=== PATIENT | female | born 1975 | race Caucasian/White ===

== ENCOUNTER → 2021-03-28 20:21 | Outpatient (CLI) | payer OTHER, SELFPAY | PROVIDERS: PCP Physician Assistant; Visit Provider Otolaryngology | DX: G47.33 Obstructive sleep apnea (adult) (pediatric) (principal) | CPT/HCPCS: 95811 ==

== ENCOUNTER → 2021-04-17 07:00 | Outpatient (CLI) | payer OTHER, SELFPAY | PROVIDERS: PCP Physician Assistant; Visit Provider Nurse Practitioner Acute Care | DX: R69 Illness, unspecified (principal) ==

== ENCOUNTER → 2021-05-15 06:30 | Outpatient (CLI) | payer OTHER, SELFPAY | PROVIDERS: PCP Physician Assistant; Visit Provider Nurse Practitioner Acute Care | DX: G47.33 Obstructive sleep apnea (adult) (pediatric) (principal) | CPT/HCPCS: 98960; G0463 ==

== ENCOUNTER 2022-10-06 12:49 | Emergency (ER) | payer OTHER, SELFPAY ==
[2022-10-06 12:50] VITALS: BP 152/104; PULSE 100; RESP 18; TEMP 36.3; O2SAT 98; BMI 30.3
--- NOTE | 2022-10-06 13:05 | EX.ED.UPPERE ---
HPI History of Present Illness Chief Complaint: Upper Extremity Injury Detail of Chief Complaint: Right arm pain Informant: patient Onset/Context/Timing Onset: Days (2 days) Context: Gradual Onset Narrative Narrative: Patient presents secondary to right arm pain. She states has been mildly achy throughout the last week but really started bothering her on Friday. She was at a birthday alliance party yesterday and was holding her hand at her side so that no one would bump it. She noted her hand to be swollen after this, but swelling did subside overnight. She denies any known injury. She is right-hand dominant. When into the room she is rubbing the right side of her neck and shoulder area and describing the area of pain at this time. She did try Tylenol, Aleve, and Flexeril around 11:30 PM last night without significant improvement. [facility] Medical History HTN (hypertension) Hx of gastroesophageal reflux (GERD) Hypothyroidism Migraines YANA (obstructive sleep apnea) Home Medications omeprazole 40 mg capsule,delayed release 40 mg PO DAILY 04/12/21 [History Last Taken Unknown] rizatriptan 10 mg tablet See Rx Instructions PO .COMPLEX 04/12/21 [History Last Taken Unknown] triamcinolone acetonide 55 mcg nasal spray aerosol (Nasacort) 1 spray intranasal DAILY 04/12/21 [History Last Taken Unknown] levothyroxine 75 mcg capsule 200 mcg PO DAILY 06/20/21 [History Last Taken Unknown] cyclobenzaprine 10 mg tablet 10 mg PO TID PRN Muscle Spasm #20 TABLETS 10/06/22 [Rx Last Taken Unknown] hydrocodone-acetaminophen 5-325mg 5mg-325mg 1 tab PO Q6H PRN PRN Pain 3 days #10 TABLETS 10/06/22 [Rx Last Taken Unknown] lidocaine 5 % topical patch (Lidoderm) 1 patch topical DAILY #15 ea 10/06/22 [Rx Last Taken Unknown] naproxen 500 mg tablet (Naprosyn) 500 mg PO BID PRN pain #20 tabs 10/06/22 [Rx Last Taken Unknown] Allergy/AdvReac Type Severity Reaction Status Date / Time No Known Allergies Allergy Verified 10/06/22 12:51 Family History Father Cancer Lung Mother Dementia Aunt Cancer Uncle Cancer Social History Smoking Status: Never smoker ROS ROS ED Constitutional Constitutional ED: Denies chills or fever(s) Eyes Eyes: Denies discharge from eye(s) ENT ENT ED: Denies discharge from eye(s), rhinorrhea or sore throat Cardiovascular Cardiovascular: Reports chest pain; Denies palpitations Respiratory/Chest Respiratory/Chest: Denies cough or dyspnea Gastrointestinal Gastrointestinal: Denies abdominal pain, nausea or vomiting Musculoskeletal Musculoskeletal: Reports extremity pain; Denies back pain Integumentary Denies Abrasions or rash Neurologic Neurologic: Reports headache(s), paresthesias and weakness Psychiatric Psychiatric: Denies anxiety or depression Endocrine Endocrinology: Denies polydipsia or polyuria Allergic/Immunologic Allergic/Immunologic ED: Denies lip swelling or urticaria EXAM Physical Exam Const Vital Signs: 10/06/22 12:50 Temperature 97.3 F L Temperature Source Temporal Pulse Rate 100 Respiratory Rate 18 Blood Pressure 152/104 H Blood Pressure Mean 120 Pulse Ox 98 Oxygen Delivery Method Room Air Positive well nourished and well developed General Appearance ED: well developed HEENT Reports normocephalic and head/scalp atraumatic Eyes PERRL and EOMs intact bilaterally Neck supple Chest Wall inspection of chest normal Chest Narrative: Mild anterior chest wall tenderness on the right over the pectoral region. No skin changes. Resp normal respiratory effort and clear to auscultation bilaterally Cardio regular rate and regular rhythm GI normal to inspection, nondistended, normoactive bowel sounds Palpation: soft Back/Spine no CVA tenderness Extremity Extremity Narrative: Mild muscular tenderness throughout the right upper extremity. No focal tenderness at the joints. No erythema or significant edema at this time. Strong distal pulses. Slow purposeful range of motion. Neuro oriented x3 and no sensory deficits noted Sensorium / Orientation: alert Psych mental status grossly normal Skin no rashes or lesions noted MDM MDM MDM Narrative Medical decision making narrative: Patient presents with I do not have ultrasound available to scan upper extremity. Lab work was obtained to include D-dimer to evaluate for electrolyte derangement or elevated D-dimer which may indicate blood clot. Chest x-ray was obtained to rule out any mass or abnormal finding in the right upper chest which may lead to right arm pain and swelling. C-spine x-rays obtained to evaluate for cervical changes. Lab Data Attestation: I reviewed the patient's lab results. Labs: Laboratory Results 10/06/22 10/06/22 10/06/22 13:25 13:25 13:25 WBC 11.5 H RBC 4.71 Hgb 14.7 Hct 43.0 MCV 91.3 MCH 31.2 MCHC 34.2 RDW Std Deviation 38.5 RDW Coeff of Rachel 11.4 L Plt Count 274 MPV 8.9 Immature Gran % (Auto) 0.300 Neut % (Auto) 67.5 Lymph % (Auto) 19.5 [place] % (Auto) 12.1 H Eos % (Auto) 0.3 Baso % (Auto) 0.3 Absolute Neuts (auto) 7.7 Absolute Lymphs (auto) 2.24 Nucleated RBC % 0 D-Dimer Quant (PE/DVT) 0.43 Sodium 135 L Potassium 3.9 Chloride 103 Carbon Dioxide 27.0 Anion Gap 5 BUN 14 Creatinine 1.06 H Estim Creat Clear Calc 60.76 Est GFR (MDRD) Af Amer 71 Est GFR (MDRD) Non-Af 59 L BUN/Creatinine Ratio 13.2 Glucose 102 Calcium 9.3 Radiography Chest X-Ray - ED: 2 View, Read by ED Physician, Normal, Heart, Lungs and Mediastinum Treatment and Re-Evaluation Narrative: CBC remarkable only for slightly elevated white count 11.5. No left shift. Chemistry studies unremarkable. D-dimer is normal at 0.43. C-spine x-rays per my interpretation reveal no obvious acute abnormalities. Radiology interpretation is reviewed and agrees. Two-view chest x-ray per my interpretation reveals normal bilateral lungs with no evidence of mass or acute abnormality. Radiology and interpretation again reviewed and agrees. On repeat evaluation patient is somewhat more comfortable. Test results discussed with her. I do not believe she needs to come in for an upper extremity ultrasound as her D-dimer is less than 0.5. I do feel that her pain is musculoskeletal in nature with muscle spasm pinching on nerves and causing a radiculopathy. She will be given Naprosyn, Flexeril, [place], and Lidoderm patches. Return instructions given. Discharge Plan Triage Chief Complaint: Upper Extremity Injury ED Provider: Desire Bridges Dx/Rx/DC Orders Clinical Impression: Cervical radiculopathy, Muscle spasm Instructions: ED Muscle Spasm, ED Radiculopathy, Cervical Prescriptions: New naproxen [Naprosyn] 500 mg tablet 500 mg PO BID PRN (Reason: pain) Qty: 20 0RF cyclobenzaprine 10 mg tablet 10 mg PO TID PRN (Reason: Muscle Spasm) Qty: 20 0RF hydrocodone-acetaminophen 5-325 mg tablet 1 tab PO Q6H PRN PRN (Reason: Pain) 3 Days Qty: 10 0RF lidocaine [Lidoderm] 5 % adhesive patch,medicated 1 patch topical DAILY Qty: 15 0RF Rx Instructions: leave on most painful area for up to 12 hrs No Action omeprazole 40 mg capsule,delayed release(DR/EC) 40 mg PO DAILY triamcinolone acetonide [Nasacort] 55 mcg aerosol,spray 1 spray intranasal DAILY Rx Instructions: administer into each nostril rizatriptan 10 mg tablet See Rx Instructions PO .COMPLEX Rx Instructions: take 1 tab at onset of headache; if no relief may repeat 1 tab after at least 2 hrs; max = 3 tabs/24 hr PO levothyroxine 75 mcg capsule 200 mcg PO DAILY Primary Care Provider: Gaby Waller Referrals: Gaby Waller PA [Primary Care Provider] - 1 Week if not improving Disposition Disposition: Home, Self Care
[2022-10-06] MEDS: Lidocaine 5% Patch 1 PATCH TOPICAL (13:17)
[2022-10-06] MEDS: Morphine 4 MG/ML Syringe IV (13:18)
[2022-10-06] MEDS: Ondansetron 4 MG/2 ML Vial IV (13:18)
[2022-10-06 13:33] LABS: Absolute Lymphocyte Count 2.24 X10^3/uL (0.83-4.51); Absolute Neutrophil Count 7.7 X10^3/uL (2.0-7.7); Basophil# 0.04 X10^3/uL; Basophil% 0.3 % (0-1); Eosinophil# 0.03 X10^3/uL; Eosinophils% 0.3 % (0-5); Hemoglobin 14.7 g/dL (12.0-15.0); Lymphocyte # 2.24 X10^3/ul (0.83-4.51); Lymphocyte % 19.5 % (19-41); Mean Corp Hgb Conc 34.2 g/dL (32-36); Mean Corpuscular Hgb 31.2 pg (27.0-32.0); Mean Corpuscular Volume 91.3 fL (81-99); Mean Platelet Vol. 8.9 fl (6.2-12.0); Monocyte# 1.39 X10^3/uL; Monocyte% 12.1 % (0-10); NRBC Flagged by Analyzer 0 % (0-5); Neutrophil # 7.72 X10^3/uL (2.7-7.7); Neutrophil % 67.5 % (47-70); Platelet Count 274 K/mm3 (150-450); RBC Distribution Width CV 11.4 % (11.6-14.6); RBC Distribution Width SD 38.5 fl (35.1-43.9); Red Blood Count 4.71 M/mm3 (4.2-5.4); White Blood Count 11.5 K/mm3 (4.4-11.0)
--- NOTE | 2022-10-06 13:41 | RAD_ITS ---
EXAM: XR CHEST, 2 VIEWS CLINICAL INDICATION: Chest pain. TECHNIQUE: Frontal and lateral views of the chest. This report was created using [employer] report generation technology. COMPARISON: None. FINDINGS: LUNGS AND PLEURAL SPACES: The lungs are clear. No pneumothorax. No effusion. HEART: Unremarkable. Cardiac silhouette not enlarged. MEDIASTINUM: Central airways and mediastinal contour are unremarkable. BONES/JOINTS: Slight anterior wedging of T12 and L1 superior endplates are presumably from remote injury and/or developmental. SOFT TISSUES: Unremarkable. RAD/Chest PA and Lateral IMPRESSION: No acute cardiopulmonary pathology.. Electronically Signed: Trav Ulloa MD at 14:00 EDT ,
--- NOTE | 2022-10-06 13:41 | RAD_ITS ---
EXAM: XR CERVICAL SPINE, 2 OR 3 VIEWS CLINICAL INDICATION: pain TECHNIQUE: Frontal and lateral views of the cervical spine. This report was created using [employer] report generation technology. COMPARISON: None. FINDINGS: VERTEBRAE: Unremarkable. Preserved vertebral body height. No acute fracture. No spondylolisthesis. Preservation of the normal cervical lordosis. No significant facet arthropathy. DISC SPACES: Unremarkable. Disc spaces are maintained. SOFT TISSUES: Unremarkable. No prevertebral soft tissue widening. LUNG APICES: Clear. RAD/Cerv Spine 2 or 3 Views IMPRESSION: Normal cervical spine radiographs. Electronically Signed: Trav Ulloa MD at 14:31 EDT ,
[2022-10-06 13:47] LABS: Anion Gap 5 (5-15); BUN 14 mg/dL (7-18); BUN/Creat Ratio 13.2 RATIO (10-20); Calcium,Total 9.3 mg/dL (8.5-10.1); Chloride 103 mmol/L (98-107); Creatinine, Serum 1.06 mg/dL (0.55-1.02); EST Glomerular Filtration Rate 59 mL/min (>60); Est Glom Filt Rate - Afr Amer 71 mL/min (>60); Estimated Creatinine Clearance 60.76 ml/min; Glucose 102 mg/dL (74-106); Potassium 3.9 mmol/L (3.5-5.1); Sodium Level 135 mmol/L (136-145)
[2022-10-06 13:52] LABS: D-Dimer Quantitative (DVT/PE) 0.43 FEU/ug/m (0.27-0.49)
[2022-10-06 15:13] VITALS: RESP 16
== END 2022-10-06 15:13 | disposition home or self-care (01) ==
PROVIDERS: Emergency Provider Emergency Medicine; PCP Physician Assistant; Visit Provider Emergency Medicine
DX: M54.12 Radiculopathy, cervical region (principal); M62.838 Other muscle spasm; G47.33 Obstructive sleep apnea (adult) (pediatric)
CPT/HCPCS: 71046; 72040; 80048; 85025; 85379; 96374; 96375; 99282; J7030; A4216; J2405

== ENCOUNTER → 2023-07-02 | Outpatient (CLI) | payer OTHER, SELFPAY ==
--- NOTE | 2023-07-02 17:47 | CT_ITS ---
INDICATION: GROSS HEMATURIA EXAMINATION: CT ABDOMEN AND PELVIS WITHOUT CONTRAST - CT Abdomen And Pelvis W/O Contrast Injection TECHNIQUE: Helically acquired images were obtained of the abdomen and pelvis without oral or IV contrast. A radiation dose optimization technique was used for this scan. IV Contrast dosage and agent: None. Oral contrast: None. RADIATION DOSAGE (If Supplied By Facility): CTDIvol = ( 10.61 ) mGy, DLP = ( 559.53 ) mGycm COMPARISON: No relevant prior comparison study available FINDINGS: LOWER CHEST: Lung bases are clear. No cardiomegaly or pericardial effusion. LIVER: Homogeneous. No focal mass. GALLBLADDER AND BILIARY TREE: Small gallstones in the gallbladder neck. No gallbladder distension or wall edema. No intra- or extrahepatic biliary ductal dilation. PANCREAS: No focal cystic or solid mass. SPLEEN: Normal size without focal cystic or solid mass. ADRENAL GLANDS: No nodules. KIDNEYS AND URETERS: Normal renal size and position. No hydronephrosis. No evidence of ureteral stones. Suboptimal evaluation of the renal contours without contrast. PERITONEUM: No ascites or free air. No other fluid collection. BOWEL: No evidence of acute appendicitis. No stomach or bowel distension. No focal inflammatory change. LYMPH NODES: No enlarged mesenteric or retroperitoneal lymph nodes. VESSELS: Aorta is non-dilated. URINARY BLADDER: Unremarkable. REPRODUCTIVE ORGANS: No pelvic masses. IUD seen in place. ABDOMINAL WALL: Very small umbilical hernia containing fat BONES: No lytic or blastic abnormality. Mild degenerative changes in the lower lumbar spine. CT/Abdomen/Pelvis without Cont IMPRESSION: 1. No evidence of urinary tract stones or hydronephrosis. 2. No focal acute inflammatory process. 3. Small gallstones in the gallbladder neck. Electronically Signed: Rigo Coates MD at 11:23 EST ,
--- OUTSIDE RECORDS SUMMARY | 2023-07-02 17:52 | XMS RPT_ITS | CCD ---
Author Name Unknown Address [id number] [place] [address] Organization [facility] Care Team Providers Care Application Security Developer Name Role Phone GOODMAN CARRILLO, KIM Navarrete Attending Unavailable Ron [phone], Krishna [phone] Co nsulting Unavailable GABY WALLER Primary Care Unavailable GOODMAN CARRILLO, KIM Navarrete Admitting Unavailable KIM OTERO MD Consulting Unavailable GABY WALLER Consulting Unavailable KIM OTERO MD Attending Unavailable GOODMAN CARRILLO, KIM Navarrete Consulting Unavailable GOODMAN CARRILLO, KIM Navarrete Primary Care Unavailable GOODMAN CARRILLO, KIM Navarrete Admitting Unavailable KIM OTERO MD Consulting Unavailable GOODMAN CARRILLO, KIM Navarrete Primary Care Unavailable GOODMAN CARRILLO, KIM Navarrete Admitting Unavailable GOODMAN CARRILLO, KIM Navarrete Attending Unavailable Pushpa CARRILLO, Sharan Garcia Primary Care Provider [phone] Pushpa CARRILLO, Sharan Garcia Primary Care Provider [phone] Pushpa CARRILLO, Sharan Garcia Primary Care Provider [phone] LEROY SALAZAR MD Admitting Unava ilable LEROY SALAZAR MD Primary Care Unava ilable LEROY SALAZAR MD Attending Unava ilable GABY WALLER Consulting Unavailable PROVIDER, UNKNOWN Consulting Unavailable GABY WALLER Attending Unavailable GABY WALLER Admitting Unavailable GABY WALLER Primary Care Unavailable GABY WALLER Consulting Unavailable PROVIDER, UNKNOWN Consulting Unavailable LEROY SALAZAR MD Primary Care Unava ilable LEROY SALAZAR MD Attending Unava ilable GABY WALLER Consulting Unavailable LEROY SALAZAR MD Admitting Unava ilable PROVIDER, UNKNOWN Consulting Unavailable MICHELLE REN Referring Unavailable PUSHPA SHARAN DEBBI Primary Care Unavailable MICHELLE REN Referring Unavailable [facility] Primary Care Unavailable PUSPHA SHARAN DEBBI Primary Care Unavailable PUSHPA SHARAN DEBBI Primary Care Unavailable GWEN, SANDI Referring Unavailable [facility] SHAR[facility] DEBBI Primary Care Unavailable GWEN, SANDI Referring Unavailable APRIL ACOSTA Attending Unavailable GWEN, SANDI Referring Un[facility] Care Unavailable GWEN, SANDI Referring Unavailable PUSHPA SHARAN DEBBI Primary Care Unavailable Sridhar TUCKER, Gaby J Unavailable Sridhar TUCKER, Gaby J Unavailable Endocrinology Provider Unavailable Unavailab lexie Neurology Provider Unavailable Unavailable Nephrology Provider Unavailable Unavailable Chuy BURGESS, Amarilis Unavailable Unavailable Naga CORN HUSKER, Serenity Unavailable Pushpa CARRILLO, Sharan Whaley Unavailable Mian CORN HUSKER, Shanice Gaviria Unavailable Unavailable Zohaib CORN HUSKER, Mitra Unavailable Unavailable Jeancarlos TUCKER, Luke E Unavailable Lucretia Arshad C Unavailable Unavailable Solo TAN, Shreya Unavailable Unavailable Carolina CORN HUSKER, Herminia Unavailable Unavaila ble Garrison CORN HUSKER, Windy Unavailable Unavailable Shane BURGESS, Michelle Menchaca Unavailable Unavailable Mutersbaugh CORN HUSKER, Juju K Unavailable Unavai lable Shahid CORN HUSKER, Bisi M Unavailable Unavailab lexie Theodore MA, Windy Unavailable Unavailable Mainor CARRILLO, Casey Garcia Unavailable Vess CORN HUSKER, Neilee L Unavailable Unavailable Wengerd CORN HUSKER, Desire Unavailable Unavailabl e Unavailable Unavailable Allergies Allergy Classification Reported Allergen(s) Allergy Type Date of Onset Reaction(s) Facility (19 sources) Latex; Translations: [LATEX] Propensity to adverse reactions 09-12-2005 [facility] Medications Current Medications Medication Drug Class(es) Dates Sig (Normalized) Sig (Original) levonorgestrel 0.796630 mg/hr intrauterine system (18 sources) Progestin, Progestin-containi ng Intrauterine Device Start: 03-26-2019 End: 03-24-2024 levonorgestrel (MIRENA) 20 mcg/24 hours (5 yrs) 52 mg IUD Indications: Encounter for insertion of mirena IUD 1 Each by INTRAUTERINE route as directed. 1 Each 0 03/26/2019 03/24/2024 Active Completed/Discontinued Medications Medication Drug Class(es) Dates Sig (Normalized) Sig (Original) cephalexin 500 mg oral capsule (4 sources) Cephalosporin Antibacterial Start: 08-28-2015 End: 09-07-2015 take 1 capsule by mouth three times daily CEPHALEXIN, 500MG (Oral Capsule) ; 1 Capsule three times daily for 10 days Quantity: 30 {Capsule} Refills: 0 Ordered: 01-Jan-2016 MD Sharan Medel Start: 28-Aug-2015 End: 07-Sep-2015 Status: Inactive cyclobenzaprine hydrochloride 10 mg oral tablet (4 sources) Muscle Relaxant Start: 01-16-2022 End: 02-06-2023 cyclobenzaprine 10 mg tablet ; 1 (one) Tablet Three times a day as needed for 0 days Quantity: 30 {Tablet} Refills: 0 Ordered: 06-Feb-2023 CarolinaFRANCHESKAN Herminia Start: 16-Jan-2022 End: 06-Feb-2023 Status: Inactive Comments: Medication taken as needed. may cause drowsiness Problems Active Problems Problem Classification Problem Date Documented Date Episodic/Chronic Allergic reactions (4 sources) Contact dermatitis and other eczema, unspecified cause 01-13-2012 Episodic Contraceptive and procreative management (8 sources) Intrauterine contraceptive device in situ; Translations: [Presence of (intrauterine) contraceptive device] Onset: 04-30-2023 04-30-2023 Episodic Esophageal disorders (12 sources) Gastroesophageal reflux disease; Translations: [Gastro-esophageal reflux disease without esophagitis] 02-06-2023 Chronic Essential hypertension (20 sources) Hypertensive disorder; Translations: [Essential (primary) hypertension] 02-06-2023 Chronic Fever of unknown origin (4 sources) Fever; Translations: [Fever, unspecified] 08-28-2015 Episodic Genitourinary symptoms and ill-defined conditions (6 sources) Blood in urine; Translations: [Hematuria, unspecified] 02-06-2023 Episodic Headache; including migraine (20 sources) Migraine; Translations: [Migraine, unspecified, not intractable, without status migrainosus] 02-06-2023 Chronic Immunizations and screening for infectious disease (1 source) Patient encounter status; Translations: [Encounter for screening for human papillomavirus (HPV)] Episodic Menstrual disorders (1 source) Intermenstrual spotting due to intrauterine device; Translations: [Excessive and frequent menstruation with regular cycle] 04-30-2023 Chronic Nonmalignant breast conditions (1 source) Breast finding ; Translations: [Dense breast tissue] 04-30-2023 Episodic Other and unspecified benign neoplasm (3 sources) Fibroadenoma of left breast; Translations: [Benign neoplasm of left breast] Episodic Other circulatory disease (4 sources) Elevated blood pressure reading without diagnosis of hypertension 07-27-2014 Episodic Other connective tissue disease (1 source) Pain in right arm; Translations: [Pain in right arm] Episodic Other connective tissue disease (6 sources) Biceps tendinitis; Translations: [Bicipital tendinitis, right shoulder] 01-27-2019 Episodic Other liver diseases (12 sources) Increased bilirubin level; Translations: [Unspecified jaundice] 02-06-2023 Episodic Other lower respiratory disease (6 sources) Snoring; Translations: [Snoring] 12-06-2021 Episodic Other non-traumatic joint disorders (6 sources) Shoulder pain; Translations: [Pain in unspecified shoulder] 07-27-2018 Episodic Other nutritional; endocrine; and metabolic disorders (6 sources) Body mass index 30+ - obesity; Translations: [Body mass index (BMI) 30.0-30.9, adult] 07-27-2018 Chronic Other nutritional; endocrine; and metabolic disorders (8 sources) Obesity; Translations: [Obesity, unspecified] 02-06-2023 Chronic Other screening for suspected conditions (not mental disorders or infectious disease) (20 sources) Mammography abnormal; Translations: [Other abnormal and inconclusive findings on diagnostic imaging of breast] Onset: 11-13-2022 Episodic Other skin disorders (6 sources) Eruption; Translations: [Rash and other nonspecific skin eruption] 01-27-2019 Episodic Other upper respiratory infections (6 sources) Upper respiratory infection; Translations: [Acute upper respiratory infection, unspecified] 11-20-2020 Episodic Residual codes; unclassified (20 sources) Obstructive sleep apnea syndrome; Translations: [Obstructive sleep apnea (adult) (pediatric)] Onset: 04-30-2022 04-30-2022 Chronic Spondylosis; intervertebral disc disorders; other back problems (8 sources) Low back pain; Translations: [Radiculopathy, lumbar region] 02-06-2023 Episodic Thyroid disorders (20 sources) Hypothyroidism, unspecified; Translations: [Nontoxic multinodular goiter] Onset: 06-05-2021 Chronic Unclassified (4 sources) Number of Children 02-06-2023 Past or Other Problems Problem Classification Problem Date Documented Da te Episodic/Chronic Unclassified (4 sources) Well adult female - The patient feels well with no complaints, has good energy level and is sleeping well. The first day of the last menstrual period was : (01/16/2023). The patient has a balanced diet and takes no supplemental vitamins & iron. The patient does not exercise. The patient sleeps 8 hours per night. Note for Well adult female : no issues or problems and does got see OBGYN in and has an appt in April and gets her Pap and mammo's there. Pt will need refill on thyroid medication.124-128/80 for home Bps. Headaches have been pretty good - still having and unsure if prn med is helping. Says they are pretty infrequent. 02-06-2023 Unclassified (4 sources) Back pain - The onset of the back pain has been acute and has been occurring for 4 days. The course has been constant. The pain is characterized as stabbing, shooting (shooting down leg) and burning. The pain is located in the lower back. There are no precipitating factors. The symptoms are relieved by ice. The pain has been associated with leg weakness (right leg). Note for Back pain : alive- this morning 7 am 01-16-2022 Unclassified (4 sources) Cold Symptoms - Symptoms include sneezing, nasal congestion, ear fullness, sore throat, dry cough, chills, general malaise and headache, but do not include fever. The onset was gradual 4 day(s) ago. The symptoms occur constantly. The patient describes this as moderate in severity and unchanged. The patient is not currently being treated for this problem. The patient has not been exposed to an individual with similar symptoms. Medical history includes seasonal allergies. 11-20-2020 Unclassified (4 sources) Well adult female - The patient feels well with no complaints, has good energy level and is sleeping well. The first day of the last menstrual period was : (03/13/20). The patient is not using any method of contraception at this time. The patient has a balanced diet and takes no supplemental vitamins & iron. The patient exercises none (occasional). The patient sleeps 6 hours per night. Note for Well adult female : Snoring.Migraines have been bad for a couple of weeks. Was having heartburn but that is better now.Gets flu shot at work. 03-20-2020 Unclassified (4 sources) Shoulder pain - The onset of the shoulder pain has been acute and has been occurring in a persistent pattern for 1 day. The course has been increasing. The pain is characterized as a moderate to severe dull aching and sharp stabbing. The pain is described as being located in the right shoulder and is aggravated by physical activity and any movement. There are no relieving factors. The symptoms have been associated with painful ROM, decreased ROM and difficulty with overhead activities, but have not been associated with fever. There has been no previous diagnostic testing. There have been no previous evaluations. Note for Shoulder pain : started yesterday at work as a pain in her bicep, originates in the right shoulder, with some numbness in her right hand 11-12-2018 Unclassified (4 sources) Follow up for multiple chronic conditions - The patient is here for follow-up of hypertension, hypothyroidism and other condition(s) (migraines (which have been good), thyroid nodule). The patient always takes the prescribed medications. No side effects noted. The patient has an active lifestyle but no regular exercise program. The patient's dietary compliance is fairly good usually adhering to recommendations. The patient states that breathing effort is stable, there is no recent angina or dyspnea, there are no vision changes or weakness (been years), sleep patterns have improved and headaches have been noticed occasionally. Note for Multiple chronic conditions follow-up : She has been bleeding since she stopped control months ago. Small amount of blood on tampon when she puts one in but otherwise is noticing it when she urinates. No urinary infection symptoms. 08-12-2018 Unclassified (4 sources) Shoulder pain - The onset of the shoulder pain has been sudden and has been occurring in a persistent pattern for 4 days. The course has been constant. The pain is characterized as a moderate to severe dull aching (all the time and then can be piercing at times with certain movements). The pain is described as being located in the left shoulder (front and side) and is aggravated by any movement. There has been no previous diagnostic testing. Previous evaluations have been completed by a chiropractor. There has been no previous physical therapy. There has been no previous surgery. There has been no use of assistive devices. Previous medication use has included Ibuprofen (took 800mg this morning). Note for Shoulder pain : No history of injury. She is right handed.Sleeps on left side.Initially woke up with discomfort but then it worsened later in the day.Doing ice/heat application which helps.Little bit of tingling intermittently into the hand. 03-06-2018 Unclassified (4 sources) Well Adult, female - The patient feels well with no complaints, has good energy level and is sleeping well. The first day of the last menstrual period was : (12/08/17). The patient is not using any method of contraception at this time. The patient has a balanced diet and takes no supplemental vitamins & iron. The patient exercises weekly. The patient sleeps 8 hours per night. Note for Well Adult, female : Migraines haven't been as bad.Went off OCP recently. 01-22-2018 Unclassified (4 sources) high bp/headaches - Patient is here due to not feeling well for the past couple of months. Had a physical about a year ago and BP was noted to be elevated at that time - seemed to improve though. On Friday she woke up with a headach and then the next day she had a bloody nose. Checked her BP at [facility] and it was 178/116. Took headache relief extra strength which didn't help. Has a history of migraines (since age of 17) but these have been fairly well controlled on OCP. She had another headache this morning so checked her BP at work and it was 158/116. The headache has since improved quite a bit. No family history of HTN. 01-02-2016 Unclassified (4 sources) Cold Symptoms - Symptoms include sneezing, nasal congestion, runny nose, purulent discharge (occasionally.), ear pain (;eft ear pain.), sore throat, productive cough (yellowish phlegm. SOB when pyong down. PO 97%.), general malaise and headache (and generalized achiness.), but do not include fever (none in office but says at times she has felt feverish but never took temperature.). The onset was gradual 4 day(s) ago. The patient describes this as worsening. Current treatment includes non-prescription cold medication (Mucinex and took some Benadryl last night.) and NSAIDs. Risk factors do not include smoking. Note for Upper respiratory infection : No one else at home sick. reviewed by [facility] 08-28-2015 Unclassified (4 sources) Well Adult, female - The patient feels well with minor complaints (Concerned about an increase in blood pressure), has decreased energy level and is sleeping well. The first day of the last menstrual period was : (07-06-14). The current method of contraception is: oral contraceptives. The patient has a balanced diet and takes no supplemental vitamins & iron. The patient does not exercise. The patient sleeps 6 hours per night. Note for Well Adult, female : BP increase was noted at [employer] office. ROS also showed snoring. Some problems awakening in the morning. Some afternoon sleepiness. 07-27-2014 Unclassified (4 sources) Rash - The onset of the rash has been gradual (Was moving trees in order to cut some firewood.) and has been occurring for 4 days. The course has been increasing. The rash is characterized as red and raised above the skin. The rash was first seen on the upper extremity (both arms). It spread to the face and the lower extremity. There has been associated itching and erythema. Note for Rash : reviewed by [facility] 01-13-2012 Results Test Name Value Interpretation Reference Range Facil ity Vital Signs Date Time Vital Sign Value Performing Clinician Mayi walton 04-30-2023 08:07-0500 Body height 167.6 cm April Acosta APRN.CNM Work Phone: [facility] 04-30-2023 08:07-0500 Body weight 86.64 kg April Acosta APRN.CNM Work Phone: [facility] 04-30-2023 08:07-0500 Diastolic blood pressure 70 mm[Hg] April Acosta APRN.CNM Work Phone: [facility] 04-30-2023 08:07-0500 Systolic blood pressure 118 mm[Hg] April Acosta APRN.CNM Work Phone: [facility] 02-06-2023 14:25-0400 Body height 168.91 cm [facility], [facility]; [facility]. 02-06-2023 14:25-0400 Body mass index (BMI) [Ratio] 30.83 kg/m2 [facility]. 02-06-2023 14:25-040 Body surface area Derived from formula 1.98 m2 [facility], [facility] 02-06-2023 14:25-040 Body temperature 98.9 [degF] [facility], [facility] Encounters Encounter Date Encounter Type Care Provider Facility Start: 06-27-2023 End: 06-27-2023 Orders Gaby Waller PA-C Work Phone: [facility] Start: 06-04-2023 End: 06-04-2023 ambulatory [facility] Facility:[facility] Start: 06-04-2023 End: 06-04-2023 Subsequent hospital visit by physician Diagnostic Mammo [facility] Mamm[facility] Start: 06-04-2023 End: 06-04-2023 ambulatory LEROY CARRILLO [facility] Start: 05-06-2023 Telephone encounter April stevens APRN.CNM Work Phone: OB/Gynecology Procedures Date Procedure Procedure Detail Performing Clinician Start: 06-04-2023 Digital breast tomosynthesis unilateral Sandi Crow APRN.[employer]ACHINE [employer]PERATOR Work Phone: Start: 06-04-2023 Urinalysis LEROY ZUÑIGA Plan of Treatment Date Care Activity Detail Author Start: 04-30-2027 HPV TESTING HPV TESTING [facility] Start: 04-30-2027 PAP TESTING PAP TESTING [facility] Start: 04-30-2027 Screening for malignant neoplasm of cervix [facility] Start: 07-27-2024 Urine microalbumin profile DTaP,Tdap,Td Vaccine (2 - Td or Tdap) [facility] Start: 04-30-2024 Mammography Mammogram Screening [facility] Start: 04-30-2024 Screening for malignant neoplasm of breast Mammogram Screening [facility] Start: 06-27-2023 Us soft tissue head & neck real time imge docm Thyroid Ultrasound (83725) Start: 27-Jun-2023 Intent [employer] Start: 04-30-2023 Mammography [facility] Start: 03-20-2023 Antinuclear antibodies tez TEZ TITER AND PATTERN (16398) Start: 20-Mar-2023 Request [employer]; [employer]. Start: 03-20-2023 Assay of thyroid stimulating hormone tsh TSH (THYROID STIMULATING HORMONE) (80064) Start: 20-Mar-2023 Request [employer]. Start: 03-20-2023 Basic metabolic panel calcium total BMP w/ GFR (F) (07997) Start: 20-Mar-2023 Request [employer]; [employer]. Start: 02-14-2023 Influenza vaccination [facility] Start: 10-15-2022 End: 06-07-2023 Diagnostic mammography computer-aided detcj uni [facility]FUS DIAGNOST[facility] LT Radiology Routine Abnormal ultrasound of breast Expected: 10/15/2022, Expires: 06/07/2023 [facility] Work Phone: Immunizations Immunization Date Immunization Notes Care Provider Neda ring 04-05-2019 influenza virus vaccine, unspecified formulation Us 1 Work Phone: [facility] 07-27-2014 tetanus toxoid, redu edwin diphtheria toxoid, and acellular pertussis vaccine, adsorbed Gaby Waller CAITLIN Work Phone: [employer]. Payers Date Payer Category Payer Unknown 2018 Unknown [id number] 2018 Unknown [employer] PPO [id number] 2018-Present [phone] [address] [place] [address] PPO [id number] 2018 Unknown [id number] 1974 Unknown [id number] 1974 Unknown [id number] 1974 Unknown [id number] 1974 Unknown [id number] 1974 Unknown [id number] 1974 Unknown [id number] Social History Date Type Detail Facility Start: 04-30-2022 Tobacco smoking stat [facility] Never smoked tobacco [facility] Work Phone: Start: 04-23-2021 End: 04-30-2022 Alcohol intake Current non-drinker of alcohol (finding) [facility] Start: 04-20-2020 History SDOH Social Connections Phone 5 [facility] Start: 04-20-2020 History SDOH Social Connections Druze 2 [facility] Start: 04-20-2020 History SDOH Social Connections Membership 1 [facility] Start: 04-20-2020 History SDOH Social Connections Meetings 3 [facility] Start: 04-20-2020 History SDOH Physica l Activity MPS 6 [facility] Start: 04-20-2020 Education 13 [facility] Start: 1975 Sex Assigned At Not on file [facility] Start: 10-07-2021 End: 04-30-2022 Exposure to SARS-CoV-2 (event) Not sure [facility] Start: 04-30-2022 Tobacco use and exposure Smoke less tobacco non-user [facility] Work Phone: Start: 04-20-2020 End: 04-30-2023 History of Social function [employer] [facility] Work Phone: Start: 04-20-2020 End: 04-30-2023 Social connection and isolation panel [facility] Work Phone: Do you belong to any clubs or organizations such as muslim groups, unions, fraternal or athletic groups, or school groups? Yes [facility] Work Phone: Are you now , , , , never or living with a partner? [facility] Work Phone: How hard is it for y ou to pay for the very basics like food, housing, medical care, and heating Not hard at all [facility] Work Phone: Do you feel stress - tense, restless, nervous, or anxious, or unable to sleep at night because your mind is troubled all the time - these days [OSQ] Not at all [facility] Work Phone: (I/We) worried wheth er (my/our) food would run out before (I/we) got money to buy more. Never true [facility] Work Phone: Start: 04-30-2023 Alcohol intake Current drinke r of alcohol (finding) [facility] Start: 04-30-2023 Alcohol Comment socially [facility] Exercise History: Exercise Histo ry: ; Inactive. [facility], [facility].; [facility], [facility]. Tobacco Use: Tobacco Use: ; N ever smoker. [facility].; [facility], [facility]. Female [facility].; [facility], [facility] Work Phone: Clinical Notes 06-14-2021 to 06-04-2023 Ramu Felix Mammo Tech - 06/04/2023 3:30 PM ESTTelephone Encounter - Ashanti Arana RN - 05/06/2023 4:43 PM ESTTelephone Encounter - Desire Cazares RN - 05/06/2023 4:38 PM EST Note Date & Type Note Facility 06-04-2023 Note HNO ID: [id number] Author: Ramu Felix Mammo Jose Service: ? Author Type: Technologist Type: Progress Notes Filed: 06/04/2023 4:17 PM Note Text: Radiology Service Progress Note PATIENT NAME: Edilma Jin DATE OF SERVICE: June 04, 2023 TIME: 4:17 PM PATIENT IDENTITY VERIFICATION COMPLETED USING TWO (2) IDENTIFIERS: Name and Date of confirmed by patient verbally. FALL SCREENING: Has the patient had 2 falls in the last year or 1 fall with injury or currently using an Ambulatory Assistive Device (Walker, Cane, Wheelchair, Crutches, etc.)? No PATIENT GENDER DATA: Female. status: : No status: NO. PATIENT RELEVANT IMPLANT DATA REVIEWED: Not Applicable RADIOLOGY DEPARTMENT: Mammography PERIPHERAL IV DATA: Not applicable SIGNED BY: Miguel Pena June 04, 2023 4:17 PM [facility] 06-04-2023 History of Presen t illness Narrative Radiology Service Progress Note PATIENT NAME: Edilma Jin DATE OF SERVICE: June 04, 2023 TIME: 4:17 PM PATIENT IDENTITY VERIFICATION COMPLETED USING TWO (2) IDENTIFIERS: Name and Date of confirmed by patient verbally. FALL SCREENING: Has the patient had 2 falls in the last year or 1 fall with injury or currently using an Ambulatory Assistive Device (Walker, Cane, Wheelchair, Crutches, etc.)? No PATIENT GENDER DATA: Female. status: : No status: NO. PATIENT RELEVANT IMPLANT DATA REVIEWED: Not Applicable RADIOLOGY DEPARTMENT: Mammography PERIPHERAL IV DATA: Not applicable SIGNED BY: Miguel Pena June 04, 2023 4:17 PM documented in this encounter [facility] 05-06-2023 Miscellaneous Notes Patient notified. Ashanti Arana RN Left message for patient to call office. Desire Cazares RN ----- Message from April Acosta APRN.CNM sent at 05/06/2023 4:33 PM EST ----- Please notify patient positive for BV. Flagyl 500mg PO BID x 7days. 1) No alcohol during treatment and for 24 hours after last dose. 2) No intercourse during treatment. 3) Probiotic by mouth once daily for 30 days or as needed. April Acosta APRN.CNM documented in this encounter [facility] 04-30-2023 Miscellaneous Notes May 01, 2023 PID: [id number] Edilma Jin [address] [place] [address] Dear Ms. Jin, Your recent breast imaging exam on 04/30/2023 showed a possible finding that requires additional imaging studies for a complete evaluation. Most such findings are probably benign (not cancer). If you have a healthcare provider who ordered/prescribed your screening mammogram: Please call [phone] or [phone]: [phone] to schedule an appointment for your additional imaging (if you have not already done so). If you DO NOT have a healthcare provider (ie you did not have an order/prescription for your screening mammogram): Please call to schedule an appointment for your additional imaging (if you have not already done so). You must have an order/prescription from your physician when calling to schedule your appointment. If your order/prescription is not electronic, you must bring the hard copy with you on the day of your exam to avoid delays. Your imaging studies and reports are kept on file at [facility] as part of your permanent medical record, and are available for your continuing care. Thank you for allowing us to help in meeting your health care needs. Sincerely, Dr. Barker Interpreting Radiologist [facility] (Additional imaging) documented in this encounter [facility] 04-30-2023 Note HNO ID: [id number] Author: April Acosta APRN.CNM Service: ? Author Type: Zipper Setter Lockstitch Type: Progress Notes Filed: 04/30/2023 9:16 AM Note Text: Edilma is a 48 year old who presents for an annual gynecologic exam without complaints. Daughter 26 Seeing PCP for UTI Menses: no menses - Mirena IUD. Has had some spotting today Contraception: IUD HPV vaccine: N/A Last Pap: 05/07/2022 normal HPV: 05/06/2022 negative History of abnormal pap: No Last mammogram: 2021 normal - Just had mammogram w/ MARGIE today 04/30/2023 Sexually active: Yes Time with current partner: Relationship for past 16 years. Pain with intercourse: No Postcoital bleeding: Yes, occassionally. Hot flashes: No Night sweats: No Vaginal dryness: No Mood swings: No Insomnia: No Exercise: 2 times a week for 60 minutes. Type: walking Diet: Regular, no restrictions Seatbelt use: Yes OB History T0 L1 SAB0 IAB0 Ectopic0 Multiple0 Live Births0 Comment: And one step-son Program Instructor History LMP: 04/16/2022 (Exact Date), IUD Age at Menarche: Age at First : Age at Menopause: Program Instructor History Comments: Sexual Activity: Yes; Male Contraception: I.U.D. PAST MEDICAL HISTORY Diagnosis Date Hypertension Hypothyroidism migraines Sleep apnea PAST SURGICAL HISTORY Procedure Laterality Date INSERTION OF IUD 03/26/2019 FAMILY HISTORY Problem Relation Age of Onset Dementia Mother Cancer Father lung Stroke Maternal Grandmother None Paternal Grandmother other (brain aneurysm) Paternal Grandmother SOCIAL HISTORY Social History Tobacco Use Smoking status: Never Smokeless tobacco: Never Vaping Use Vaping Use: Never used Substance Use Topics Alcohol use: Yes Comment: socially Drug use: No REVIEW OF SYSTEMS Abdomen: No abdominal pain, nausea, vomiting, diarrhea, or constipation. No bloating, early satiety, indigestion, or increased flatulence. Bladder: No dysuria, gross hematuria, urinary frequency, urinary urgency, or incontinence. Breast: No breast lumps, nipple d/c, overlying skin changes, redness or skin retraction. Allergies and current medication updated:Yes EXAM: BP 118/70 Ht 5' 6 (1.68m) Wt 191 lb (86.6kg) LMP 04/16/2022 BMI 30.84 kg/(m2). GENERAL: pleasant, female in no apparent distress HEENT: Normocephalic, atraumatic, mucus membranes moist, and no lesions NECK: Supple, full range of motion, no adenopathy, and thyroid normal DERMATOLOGY: Normal, without lesions, non-icteric, and non-hirsute BREAST: soft, non-tender, symmetric, no dominant mass, normal nipple-areolar complex, no lymphadenopathy, and no nipple discharge CHEST: Normal inspiratory effort ABDOMEN: soft, non-tender, and no masses PELVIC: external genitalia normal, normal Bartholin's glands, urethra, Lengby's glands, no vulvar lesions, no cervical lesions, good vaginal support, physiologic discharge present, normal appearing perineal body and perianal region BIMANUAL: uterus normal size, shape and consistency, no adnexal masses, and non-tender RECTOVAGINAL: deferred. NEURO: alert and oriented x3,exam grossly non-focal EXTREMITIES: normal ASSESSMENT/PLAN: 1. Encounter for gynecological examination (general) (routine) with abnormal findings - ICD9: V72.31, ICD10: Z01.411 (primary diagnosis) - Completed pelvic and breast exam - Encouraged monthly BSE - Follow up for annual exam in one year. 2. Encounter for screening mammogram for breast cancer - ICD9: V76.12, ICD10: Z12.31 - Completed pelvic and breast exam - Encouraged monthly BSE - Follow up for annual exam in one year. - RUFUS SCREENING W MARGIE 3. Dense breast tissue - ICD9: 793.82, ICD10: R92.30 - RUFUS SCREENING W MARGIE 4. IUD (intrauterine device) in place - ICD9: V45.51, ICD10: Z97.5 5. Intermenstrual spotting due to IUD - ICD9: 626.6, V45.51, ICD10: N92.0, Z97.5 -Discussed with patient spotting can be present with IUD. Can remove if pain, increased spotting, or wants to be without IUD. -BV and yeast completed 1) Health maintenance: Pap/HPV up to date. Mammogram ordered. Nutrition, exercise and routine health maintenance exams reviewed. Calcium/Vitamin D supplementation information provided. Lipids/glucose: followed by PCP Vitamin D: followed by PCP Colonoscopy with PCP 2) Contraception: IUD. Contraceptive options reviewed and information provided. 3) STD screening: Declined STD check. 4) Follow up one year or sooner as needed April Acosta APRN.CNM [facility] 04-30-2023 Note HNO ID: [id number] Author: Regina Medellin Mammo Tech Service: ? Author Type: Boat Joiner Type: Progress Notes Filed: 04/30/2023 7:47 AM Note Text: Radiology Service Progress Note PATIENT NAME: Edilma Jin DATE OF SERVICE: April 30, 2023 TIME: 7:23 AM PATIENT IDENTITY VERIFICATION COMPLETED USING TWO (2) IDENTIFIERS: Name and Date of confirmed by patient verbally. FALL SCREENING: Has the patient had 2 falls in the last year or 1 fall with injury or currently using an Ambulatory Assistive Device (Walker, Cane, Wheelchair, Crutches, etc.)? No PATIENT GENDER DATA: Female. status: : No status: NO. PATIENT RELEVANT IMPLANT DATA REVIEWED: Not Applicable RADIOLOGY DEPARTMENT: Mammography PERIPHERAL IV DATA: Not applicable SIGNED BY: Miguel Aaron April 30, 2023 7:23 AM [facility] 04-30-2023 Miscellaneous Notes Addended by: APRIL ACOSTA on: 04/30/2023 09:16 AM Modules accepted: Orders documented in this encounter [facility] 04-30-2023 History of Presen t illness Narrative Edilma is a 48 year old who presents for an annual gynecologic exam without complaints. Daughter 26 Seeing PCP for UTI Menses: no menses - Mirena IUD. Has had some spotting today Contraception: IUD HPV vaccine: N/A Last Pap: 05/07/2022 normal HPV: 05/06/2022 negative History of abnormal pap: No Last mammogram: 2021 normal - Just had mammogram w/ MARGIE today 04/30/2023 Sexually active: Yes Time with current partner: Relationship for past 16 years. Pain with intercourse: No Postcoital bleeding: Yes, occassionally. Hot flashes: No Night sweats: No Vaginal dryness: No Mood swings: No Insomnia: No Exercise: 2 times a week for 60 minutes. Type: walking Diet: Regular, no restrictions Seatbelt use: Yes OB History T0 L1 SAB0 IAB0 Ectopic0 Multiple0 Live Births0 Comment: And one step-son Program Instructor History LMP: 04/16/2022 (Exact Date), IUD Age at Menarche: Age at First : Age at Menopause: Program Instructor History Comments: Sexual Activity: Yes; Male Contraception: I.U.D. PAST MEDICAL HISTORY Diagnosis Date Hypertension Hypothyroidism migraines Sleep apnea PAST SURGICAL HISTORY Procedure Laterality Date INSERTION OF IUD 03/26/2019 FAMILY HISTORY Problem Relation Age of Onset Dementia Mother Cancer Father lung Stroke Maternal Grandmother None Paternal Grandmother other (brain aneurysm) Paternal Grandmother SOCIAL HISTORY Social History Tobacco Use Smoking status: Never Smokeless tobacco: Never Vaping Use Vaping Use: Never used Substance Use Topics Alcohol use: Yes Comment: socially Drug use: No REVIEW OF SYSTEMS Abdomen: No abdominal pain, nausea, vomiting, diarrhea, or constipation. No bloating, early satiety, indigestion, or increased flatulence. Bladder: No dysuria, gross hematuria, urinary frequency, urinary urgency, or incontinence. Breast: No breast lumps, nipple d/c, overlying skin changes, redness or skin retraction. Allergies and current medication updated:Yes EXAM: BP 118/70 Ht 5' 6 (1.68m) Wt 191 lb (86.6kg) LMP 04/16/2022 BMI 30.84 kg/(m^2). GENERAL: pleasant, female in no apparent distress HEENT: Normocephalic, atraumatic, mucus membranes moist, and no lesions NECK: Supple, full range of motion, no adenopathy, and thyroid normal DERMATOLOGY: Normal, without lesions, non-icteric, and non-hirsute BREAST: soft, non-tender, symmetric, no dominant mass, normal nipple-areolar complex, no lymphadenopathy, and no nipple discharge CHEST: Normal inspiratory effort ABDOMEN: soft, non-tender, and no masses PELVIC: external genitalia normal, normal Bartholin's glands, urethra, Lengby's glands, no vulvar lesions, no cervical lesions, good vaginal support, physiologic discharge present, normal appearing perineal body and perianal region BIMANUAL: uterus normal size, shape and consistency, no adnexal masses, and non-tender RECTOVAGINAL: deferred. NEURO: alert and oriented x3,exam grossly non-focal EXTREMITIES: normal ASSESSMENT/PLAN: 1. Encounter for gynecological examination (general) (routine) with abnormal findings - ICD9: V72.31, ICD10: Z01.411 (primary diagnosis) - Completed pelvic and breast exam - Encouraged monthly BSE - Follow up for annual exam in one year. 2. Encounter for screening mammogram for breast cancer - ICD9: V76.12, ICD10: Z12.31 - Completed pelvic and breast exam - Encouraged monthly BSE - Follow up for annual exam in one year. - RUFUS SCREENING W MARGIE 3. Dense breast tissue - ICD9: 793.82, ICD10: R92.30 - RUFUS SCREENING W MARGIE 4. IUD (intrauterine device) in place - ICD9: V45.51, ICD10: Z97.5 5. Intermenstrual spotting due to IUD - ICD9: 626.6, V45.51, ICD10: N92.0, Z97.5 -Discussed with patient spotting can be present with IUD. Can remove if pain, increased spotting, or wants to be without IUD. -BV and yeast completed 1) Health maintenance: Pap/HPV up to date. Mammogram ordered. Nutrition, exercise and routine health maintenance exams reviewed. Calcium/Vitamin D supplementation information provided. Lipids/glucose: followed by PCP Vitamin D: followed by PCP Colonoscopy with PCP 2) Contraception: IUD. Contraceptive options reviewed and information provided. 3) STD screening: Declined STD check. 4) Follow up one year or sooner as needed April Acosta APRN.CNM documented in this encounter [facility] 04-30-2023 History of Presen t illness Narrative Radiology Service Progress Note PATIENT NAME: Edilma Jin DATE OF SERVICE: April 30, 2023 TIME: 7:23 AM PATIENT IDENTITY VERIFICATION COMPLETED USING TWO (2) IDENTIFIERS: Name and Date of confirmed by patient verbally. FALL SCREENING: Has the patient had 2 falls in the last year or 1 fall with injury or currently using an Ambulatory Assistive Device (Walker, Cane, Wheelchair, Crutches, etc.)? No PATIENT GENDER DATA: Female. status: : No status: NO. PATIENT RELEVANT IMPLANT DATA REVIEWED: Not Applicable RADIOLOGY DEPARTMENT: Mammography PERIPHERAL IV DATA: Not applicable SIGNED BY: Miguel Aaron April 30, 2023 7:23 AM documented in this encounter [facility] 11-13-2022 Note HNO ID: [id number] Author: Lena Chinchilla RDMS Service: ? Author Type: Boat Joiner Type: Progress Notes Filed: 11/13/2022 8:37 AM Note Text: Radiology Service Progress Note PATIENT NAME: Edilma Jin DATE OF SERVICE: November 13, 2022 TIME: 8:37 AM PATIENT IDENTITY VERIFICATION COMPLETED USING TWO (2) IDENTIFIERS: Name and Date of confirmed by patient verbally. FALL SCREENING: Has the patient had 2 falls in the last year or 1 fall with injury or currently using an Ambulatory Assistive Device (Walker, Cane, Wheelchair, Crutches, etc.)? No PATIENT GENDER DATA: Female. status: : No status: NO. PATIENT RELEVANT IMPLANT DATA REVIEWED: Not Applicable RADIOLOGY DEPARTMENT: Ultrasound PERIPHERAL IV DATA: Not applicable SIGNED BY: Lena Chinchilla RDMS November 13, 2022 8:37 AM [facility] 11-13-2022 Note HNO ID: [id number] Author: NEFTALI Adams) Service: ? Author Type: Technologist Type: Progress Notes Filed: 11/13/2022 7:59 AM Note Text: Radiology Service Progress Note PATIENT NAME: Edilma Jin DATE OF SERVICE: November 13, 2022 TIME: 7:58 AM PATIENT IDENTITY VERIFICATION COMPLETED USING TWO (2) IDENTIFIERS: Name and Date of confirmed by patient verbally. FALL SCREENING: Has the patient had 2 falls in the last year or 1 fall with injury or currently using an Ambulatory Assistive Device (Walker, Cane, Wheelchair, Crutches, etc.)? No PATIENT GENDER DATA: Female. status: : No status: NO. PATIENT RELEVANT IMPLANT DATA REVIEWED: Not Applicable RADIOLOGY DEPARTMENT: Mammography PERIPHERAL IV DATA: Not applicable SIGNED BY: Mine Lyn RT(R) November 13, 2022 7:58 AM [facility] 10-06-2022 Note HNO ID: [id number] Author: April Wallace APRN.OZZY Service: ? Author Type: Nurse Practitioner Type: Progress Notes Filed: 10/06/2022 12:45 PM Note Text: 47 year old female with no PMH presents for right arm pain and swelling. States over the past week Has felt funny States extreme pain She has noted swelling. Denies known trauma or injury. Given her pain is out of proportion and with no known injury discussed concerns for a DVT. Sent to ED given unable to obtain US at time of presentation. [facility] 10-06-2022 History of Presen t illness Narrative 47 year old female with no PMH presents for right arm pain and swelling. States over the past week Has felt funny States extreme pain She has noted swelling. Denies known trauma or injury. Given her pain is out of proportion and with no known injury discussed concerns for a DVT. Sent to ED given unable to obtain US at time of presentation. documented in this encounter [facility] 05-08-2022 Miscellaneous Notes Told patient results of breast imaging done on 04/30/2022. Bilateral mammograms with margie- IMPRESSION: BENIGN FINDING The 0.9 cm oval mass in the left breast is consistent with a fibroadenoma and is benign. There is no mammographic evidence of malignancy. US left breast- IMPRESSION: PROBABLY BENIGN - SHORT TERM INTERVAL FOLLOW-UP RECOMMENDED The stable 0.4 cm x 0.3 cm x 0.9 cm oval lesion in the left breast at 1 o'clock anterior depth is probably benign. A follow-up ultrasound in 6 months is recommended. This may represent post biopsy change. The stable 0.9 cm x 0.4 cm x 0.7 cm oval mass in the left breast at 1 o'clock middle depth is consistent with a fibroadenoma and is benign. A follow-up ultrasound in 6 months is recommended to demonstrate stability. Will follow with above recommendations. Follow up left breast US and mammograms ordered. Patient acknowledges above. documented in this encounter [facility] 04-30-2022 History of Presen t illness Narrative Radiology Service Progress Note PATIENT NAME: Edilma Jin DATE OF SERVICE: April 30, 2022 TIME: 9:04 AM PATIENT IDENTITY VERIFICATION COMPLETED USING TWO (2) IDENTIFIERS: Name and Date of confirmed by patient verbally. FALL SCREENING: Has the patient had 2 falls in the last year or 1 fall with injury or currently using an Ambulatory Assistive Device (Walker, Cane, Wheelchair, Crutches, etc.)? No PATIENT GENDER DATA: Female. status: : No status: NO. PATIENT RELEVANT IMPLANT DATA REVIEWED: Not Applicable RADIOLOGY DEPARTMENT: Ultrasound PERIPHERAL IV DATA: Not applicable SIGNED BY: April Kc RDMS RVAddis April 30, 2022 9:04 AM documented in this encounter [facility] 04-30-2022 History of Presen t illness Narrative Radiology Service Progress Note PATIENT NAME: Edilma Jin DATE OF SERVICE: April 30, 2022 TIME: 8:00 AM PATIENT IDENTITY VERIFICATION COMPLETED USING TWO (2) IDENTIFIERS: Name and Date of confirmed by patient verbally. FALL SCREENING: Has the patient had 2 falls in the last year or 1 fall with injury or currently using an Ambulatory Assistive Device (Walker, Cane, Wheelchair, Crutches, etc.)? No PATIENT GENDER DATA: Female. status: : No status: NO. PATIENT RELEVANT IMPLANT DATA REVIEWED: Not Applicable RADIOLOGY DEPARTMENT: Mammography PERIPHERAL IV DATA: Not applicable SIGNED BY: Marilu Santiago Mammo Tech April 30, 2022 8:00 AM documented in this encounter [facility] 04-30-2022 History of Presen t illness Narrative Edilma is a 47 year old who presents for an annual gynecologic exam without complaints. Menses: no menses - Mirena IUD. Had 1 in Apr 2022 Contraception: vasectomy HPV vaccine: N/A Last Pap: 2016 normal HPV: negative History of abnormal pap: No Last mammogram: 2021 pending Sexually active: Yes Pain with intercourse: No Postcoital bleeding: No Hot flashes: No Night sweats: No OB History T0 L1 SAB0 IAB0 Ectopic0 Multiple0 Live Births0 Comment: And one step-son Program Instructor History LMP: 04/16/2022, IUD Age at Menarche: Age at First : Age at Menopause: Program Instructor History Comments: Sexual Activity: Yes; Male Contraception: I.U.D. PAST MEDICAL HISTORY Diagnosis Date Hypertension Hypothyroidism migraines Sleep apnea PAST SURGICAL HISTORY Procedure Laterality Date INSERTION OF IUD 03/26/2019 FAMILY HISTORY Problem Relation Age of Onset Dementia Mother Cancer Father lung Stroke Maternal Grandmother None Paternal Grandmother other (brain aneurysm) Paternal Grandmother SOCIAL HISTORY Social History Tobacco Use Smoking status: Never Smokeless tobacco: Never Vaping Use Vaping Use: Never used Substance Use Topics Alcohol use: No Drug use: No REVIEW OF SYSTEMS Abdomen: No abdominal pain, nausea, vomiting, diarrhea, or constipation. No bloating, early satiety, indigestion, or increased flatulence. Bladder: No dysuria, gross hematuria, urinary frequency, urinary urgency, or incontinence. Breast: No breast lumps, nipple d/c, overlying skin changes, redness or skin retraction. Allergies and current medication updated:Yes EXAM: Ht 5' 6 (1.68m) Wt 184 lb 3.2 oz (83.6kg) LMP 04/16/2022 BMI 29.75 kg/(m^2). GENERAL: pleasant, female in no apparent distress HEENT: Normocephalic, atraumatic, and no lesions NECK: Supple, full range of motion, no adenopathy, and thyroid normal DERMATOLOGY: Normal, without lesions, non-icteric, and non-hirsute BREAST: soft, non-tender, symmetric, no dominant mass, normal nipple-areolar complex, no lymphadenopathy, and no nipple discharge CHEST: Normal inspiratory effort ABDOMEN: soft, non-tender, and no masses PELVIC: external genitalia normal, normal Bartholin's glands, urethra, Lengby's glands, no vulvar lesions, no cervical lesions, physiologic discharge present, normal appearing perineal body and perianal region. IUD string seen BIMANUAL: uterus normal size, shape and consistency, no adnexal masses, and non-tender NEURO: alert and oriented x3,exam grossly non-focal EXTREMITIES: normal ASSESSMENT/PLAN: 1) Health maintenance: Pap done with HPV. Mammogram up to date . Nutrition, exercise and routine health maintenance exams reviewed. Calcium/Vitamin D supplementation information provided. 2) Contraception: IUD. Contraceptive options reviewed and information provided. 3) STD screening: Declined STD check. 4) Follow up one year or sooner as needed Sandi Crow APRN.OZZY documented in this encounter [facility] 10-23-2021 History of Presen t illness Narrative Edilma Jin 1975 REFERRING PHYSICIAN: Michelle Ren MD CHIEF COMPLAINT: Follow Up (6 month breast f/u) HPI: The patient is a 46 year old female presents with abnormal left breast radiographs. She is s/p US guided left breast biopsy 05/30/2020 - findings of fibroadenoma with adenosis. She denies palpable breast masses. She denies nipple discharge. She denies breast pain. Mammograms 10/23/2021 Examination indicates a biopsy marker in the left breast. No significant masses, calcifications, or other findings are seen in the breast. IMPRESSION: INCOMPLETE: NEEDS ADDITIONAL IMAGING EVALUATION Ultrasound is recommended for the left breast, to follow up the prior noted probably benign sonographic finding. Mammogram BI-RADS: 0 Incomplete: needs additional imaging evaluation IMPRESSION: PROBABLY BENIGN - SHORT TERM INTERVAL FOLLOW-UP RECOMMENDED The stable 0.5 cm x 0.3 cm x 0.8 cm oval lesion in the left breast at 1 o'clock middle depth is probably benign, potentially related to post biopsy change as this finding was not present on pre biopsy imaging. The stable 1 cm x 0.4 cm x 0.9 cm lobulated mass in the left breast at 1 o'clock middle depth is consistent with a fibroadenoma and is benign. A follow-up mammogram and an ultrasound in 6 months is recommended to demonstrate stability. PAST MEDICAL HISTORY Diagnosis Date Hypertension Hypothyroidism migraines Sleep apnea PAST SURGICAL HISTORY Procedure Laterality Date INSERTION OF IUD 03/26/2019 Current Outpatient Medications Medication Sig triamcinolone acetonide (NASACORT AQ) 55 mcg nasal inhaler Use in the nose. omeprazole (PRILOSEC) 40 mg capsule Take by mouth. levothyroxine (SYNTHROID) 25 mcg tablet 3 tablets once daily. levonorgestrel (MIRENA) 20 mcg/24 hours (5 yrs) 52 mg IUD 1 Each by INTRAUTERINE route as directed. SUMAtriptan (IMITREX) 50 mg tablet Take 50 mg by mouth as needed. rizatriptan (MAXALT) 10 mg tablet Take 10 mg by mouth as needed. May repeat in 2 hours if needed hydroCHLOROthiazide (HYDRODIURIL, ESIDRIX) 25 mg tablet Take 25 mg by mouth once daily. ALLERGIES: Latex PERSONAL HISTORY: Social History Tobacco Use Smoking status: Never Smoker Smokeless tobacco: Never Used Vaping Use Vaping Use: Never used Substance Use Topics Alcohol use: No Drug use: No FAMILY HISTORY Problem Relation Age of Onset Dementia Mother Cancer Father lung Stroke Maternal Grandmother None Paternal Grandmother other (brain aneurysm) Paternal Grandmother The review of systems data was entered by the nurse and reviewed by tx Nursing Notes: Lyric Cordero RN 10/23/2021 10:09 AM Signed REVIEW OF SYSTEMS: General: The patient denies fatigue, denies weight loss, denies weight gain, denies feeling hot, and denies feelings of cold. Eyes: The patient denies glaucoma, denies eye injury/surgery, does not wear glasses or contacts. Ear/Nose/Throat: The patient denies allergies, denies hayfever, denies ear infections, and denies bloody noses. Cardiovascular: The patient denies chest pain, denies heart disease, NOTES high blood pressure,denies cardiac stent, denies prior heart attack, denies irregular heart beat, NOTES high cholesterol, denies poor circulation, denies heart failure, other cardiac issues, denies claudication, denies cold feet, denies peripheral arterial stent. Respiratory: The patient denies tuberculosis, denies pneumonia, denies frequent cough, denies pulmonary embolism, denies shortness of breath, and denies coughing up blood. Gastrointestinal: The patient denies difficulty swallowing, NOTES acid reflux, denies ulcers, denies vomiting, denies jaundice/hepatitis, denies gallbladder problems, denies black or tarry stools, denies hemorrhoids, denies bleeding from rectum, denies diverticulitis, denies constipation, denies diarrhea, denies loss of stool control, and denies hernias. Kidney/Bladder: The patient denies kidney stones, denies urine infections, and denies bloody urine. Skin: The patient denies a history of skin cancer, denies bleeding/changing moles, and denies a history of skin rash. Neurologic: The patient denies a history of epilepsy/convulsions,NOTES headaches, denies head/spinal injuries, and denies stroke/TIA. Psychiatric: The patient denies psychiatric medications, denies depression, and denies voices, denies substance abuse. Endocrine: The patient NOTES thyroid disorders, denies diabetes, and denies hormonal problems. Hematologic: The patient denies a history of bruising, denies bleeding, and denies anemia, denies blood clots. Infections: The patient denies a history of measles and mumps, denies rheumatic fever, and denies sexually transmitted diseases. Musculoskeletal: The patient denies back pain/injury, denies back problems, denies sciatica, denies knee/foot trouble, denies arthritis, or denies gout. When was patient's last Mammogram screening? 2021 Last Colonoscopy: NONE Lyric Cordero RN PHYSICAL EXAMINATION: General: The patient is 46 year old female, well nourished, well hydrated in no acute distress. The patient is oriented to time, place, and person. VITALS: Blood pressure 120/78, pulse 78, temperature 36.6 C (97.8 F), height 167.6 cm (5' 6 ), weight 84.6 kg (186 lb 6.4 oz), last menstrual period 03/19/2019, SpO2 98 %. Body mass index is 30.09 kg/m . Head Normocephalic. EOM intact with sclera clear and no icterus noted. Mouth with mucus membranes moist. Neck - supple with no jugular venous distention noted. Trachea is midline. No carotid bruits noted. No thyroid enlargement or thyroid nodules detected. No masses noted. Chest/breast no asymmetry of breasts noted, no suspicious skin lesions noted, no nipple discharge and both nipples everted, no breast masses noted Lungs clear to auscultation. Normal breath sounds. No rales/rhonchi/wheezing noted. No labored breathing noted, such as retractions. No cough heard. Heart normal S1 and S2 auscultated. No rubs/clicks/murmurs noted. Regular rate. Abdomen soft and benign. Normal bowel sounds No abdominal bruits noted. Difficult to determine if any masses or organomegaly due to body habitus. Extremities no calf tenderness noted. No pitting edema noted. Skin multiple breast skin nevi upper left breast not black but slightly irregular, normal skin integrity. Lymph no cervical adenopathy detected, no supraclavicular adenopathy detected, no axillary adenopathy detected Neurological gait normal, no focal deficits noted Psych calm and appropriate RADIOLOGIC STUDIES: As Noted Assessment IMPRESSION: abnormal breast radiographs for which 6 months follow up is required PLAN: I have discussed the above with the patient. I have reassured her that at this point, there is no indication for breast biopsy. I suspect that the lesions seen on the breast radiographs are probably fibroadenomas but patient should continue with follow up as recommended. Clinically by physical examination - there is no evidence of breast malignancy. Patient can return to her PCP for follow up. The patient acknowledges above. I have answered all questions to the patient s satisfaction and the patient has no further questions. I have confirmed and edited as necessary, the PFSH and ROS obtained by others. . 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 I spent a total of 21 minutes on the date of the service which included preparing to see the patient with review of any pertinent laboratory studies/radiological imaging/medical records, [id number] patient care, obtaining oral medical history from the patient in this encounter, performing a medically appropriate examination, counseling and educating the patient/family/caregiver, and completing appropriate medical documentation. Michelle Ren MD documented in this encounter [facility] 10-23-2021 Nurse Note REVIEW OF SYSTEMS: General: The patient denies fatigue, denies weight loss, denies weight gain, denies feeling hot, and denies feelings of cold. Eyes: The patient denies glaucoma, denies eye injury/surgery, does not wear glasses or contacts. Ear/Nose/Throat: The patient denies allergies, denies hayfever, denies ear infections, and denies bloody noses. Cardiovascular: The patient denies chest pain, denies heart disease, NOTES high blood pressure,denies cardiac stent, denies prior heart attack, denies irregular heart beat, NOTES high cholesterol, denies poor circulation, denies heart failure, other cardiac issues, denies claudication, denies cold feet, denies peripheral arterial stent. Respiratory: The patient denies tuberculosis, denies pneumonia, denies frequent cough, denies pulmonary embolism, denies shortness of breath, and denies coughing up blood. Gastrointestinal: The patient denies difficulty swallowing, NOTES acid reflux, denies ulcers, denies vomiting, denies jaundice/hepatitis, denies gallbladder problems, denies black or tarry stools, denies hemorrhoids, denies bleeding from rectum, denies diverticulitis, denies constipation, denies diarrhea, denies loss of stool control, and denies hernias. Kidney/Bladder: The patient denies kidney stones, denies urine infections, and denies bloody urine. Skin: The patient denies a history of skin cancer, denies bleeding/changing moles, and denies a history of skin rash. Neurologic: The patient denies a history of epilepsy/convulsions,NOTES headaches, denies head/spinal injuries, and denies stroke/TIA. Psychiatric: The patient denies psychiatric medications, denies depression, and denies voices, denies substance abuse. Endocrine: The patient NOTES thyroid disorders, denies diabetes, and denies hormonal problems. Hematologic: The patient denies a history of bruising, denies bleeding, and denies anemia, denies blood clots. Infections: The patient denies a history of measles and mumps, denies rheumatic fever, and denies sexually transmitted diseases. Musculoskeletal: The patient denies back pain/injury, denies back problems, denies sciatica, denies knee/foot trouble, denies arthritis, or denies gout. When was patient's last Mammogram screening? 2021 Last Colonoscopy: NONE Lyric Cordero RN documented in this encounter [facility] 10-23-2021 Procedure note Radiology Service Progress Note PATIENT NAME: Edilma Jin DATE OF SERVICE: October 23, 2021 TIME: 10:04 AM PATIENT IDENTITY VERIFICATION COMPLETED USING TWO (2) IDENTIFIERS: Name and Date of confirmed by patient verbally. FALL SCREENING: Has the patient had 2 falls in the last year or 1 fall with injury or currently using an Ambulatory Assistive Device (Walker, Cane, Wheelchair, Crutches, etc.)? No PATIENT GENDER DATA: Female. status: : No status: NO. PATIENT RELEVANT IMPLANT DATA REVIEWED: Not Applicable RADIOLOGY DEPARTMENT: Mammography PERIPHERAL IV DATA: Not applicable SIGNED BY: Luli Turner Grooveo Jose October 23, 2021 10:04 AM documented in this encounter [facility] 10-09-2021 Miscellaneous Notes PT was wondering if she had to schedule a follow up with Dr. Ren? Or did she just need to do another Mammogram? Please advise documented in this encounter [facility] 06-14-2021 Note PROCEDURE: ULTRASOUN D BIOPSY, ULTRASOUND THYROID, 06/14/2021 9:59 AM EST CLINICAL INDICATIONS: Indeterminate left thyroid nodule. COMPARISON: None. TECHNIQUE: Sonographic guided fine-needle aspiration biopsy middle third left lobe thyroid nodule performed by Dr. Velasquez. The procedure was discussed at length with the patient including risks, benefits, and alternatives. The patient's questions were answered and written consent obtained. Time for pause and confirmation was performed. Preliminary imaging demonstrates diffuse heterogeneity throughout the left lobe of the thyroid. 2.2 x 0.8 x 1.8 cm mixed solid and cystic nodule junction of left isthmus and left lobe of the thyroid is present. This likely corresponds with abnormality described on outside imaging. Following appropriate positioning of the patient, the overlying skin was prepped, cleansed, and draped in usual sterile fashion. 4 mL 1% lidocaine was used of both local and deep anesthesia. 25-gauge needle introduced under sonographic guidance into the left lobe thyroid nodule. 4 aspiration samples obtained. Aspirated material evaluated by the pathology department at the time of the procedure and deemed adequate for diagnosis. Complication: None Blood loss: None The needle was then removed and appropriate hemostasis achieved. Bandage and ice applied. Patient tolerated the entire procedure well without immediate complication. IMPRESSION: Successful sonographic guided biopsy of 2.2 cm mixed solid and cystic nodule junction of left isthmus and mid left lobe of the thyroid without immediate complication. [facility] 06-14-2021 Note PROCEDURE: ULTRASOUN D BIOPSY, ULTRASOUND THYROID, 06/14/2021 9:59 AM EST CLINICAL INDICATIONS: Indeterminate left thyroid nodule. COMPARISON: None. TECHNIQUE: Sonographic guided fine-needle aspiration biopsy middle third left lobe thyroid nodule performed by Dr. Velasquez. The procedure was discussed at length with the patient including risks, benefits, and alternatives. The patient's questions were answered and written consent obtained. Time for pause and confirmation was performed. Preliminary imaging demonstrates diffuse heterogeneity throughout the left lobe of the thyroid. 2.2 x 0.8 x 1.8 cm mixed solid and cystic nodule junction of left isthmus and left lobe of the thyroid is present. This likely corresponds with abnormality described on outside imaging. Following appropriate positioning of the patient, the overlying skin was prepped, cleansed, and draped in usual sterile fashion. 4 mL 1% lidocaine was used of both local and deep anesthesia. 25-gauge needle introduced under sonographic guidance into the left lobe thyroid nodule. 4 aspiration samples obtained. Aspirated material evaluated by the pathology department at the time of the procedure and deemed adequate for diagnosis. Complication: None Blood loss: None The needle was then removed and appropriate hemostasis achieved. Bandage and ice applied. Patient tolerated the entire procedure well without immediate complication. IMPRESSION: Successful sonographic guided biopsy of 2.2 cm mixed solid and cystic nodule junction of left isthmus and mid left lobe of the thyroid without immediate complication. [facility] Category 3 [facility]ography result with short follow-up interval suggested for probably benign finding Inconclusive mammogram [facility] Diagnosis Category 3 mammography result with short follow-up interval suggested for probably benign finding Inconclusive mammogram [facility]* Diagnosis Abnormal mammogram- Primary Abnormal mammogram, unspecified [facility]* Diagnosis Fibroadenoma, left- Primary documented in this encounter [facility] note* Diagnosis Encounter for gynecological examination (general) (routine) without abnormal findings- Primary Screening for cervical cancer Screening for malignant neoplasm of the cervix Encounter for screening for human papillomavirus (HPV) Special screening examination for human papillomavirus (HPV) Encounter for screening mammogram for breast cancer [facility]* Diagnosis Abnormal ultrasound of breast- Primary Other (abnormal) findings on radiological examination of breast documented in this encounter [facility] note* Diagnosis Right arm pain- Primary Pain in limb [facility] Diagnosis Fibroadenoma, left documented in this encounter [facility] note* Diagnosis Fibroadenoma, left [facility]* Diagnosis Encounter for gynecological examination (general) (routine) with abnormal findings- Primary Encounter for screening mammogram for breast cancer Dense breast tissue IUD (intrauterine device) in place Presence of intrauterine contraceptive device Intermenstrual spotting due to IUD Other complications due to genitourinary device, implant, and graft [facility]* Diagnosis Encounter for screening mammogram for breast cancer documented in this encounter [facility] note* Diagnosis Abnormal mammogram- Primary Abnormal mammogram, unspecified documented in this encounter [facility] note* Diagnosis Abnormal mammogram Abnormal mammogram, unspecified documented in this encounter [facility] note* Diagnosis Abnormal mammogram Abnormal mammogram, unspecified documented in this encounter [facility] for referral (narrative)* Diagnostic Procedure Only (Routine) - Pending Review Specialty Diagnoses / Procedures Referred By Nick navarrete Referred To Contact [facility] Diagnoses Follow-up examination of abnormal mammogram Procedures US BREAST LTD LT US BREAST UNI REAL TIME WITH IMAGE LIMITED Sandi Crow APRN.[place] [address] [facility] [address] [place] [address] Referral ID Status Reason Start Date Expiration Date Visits Requested Visits Authorized [id number] Pending Review Auto-Generat ed Referral 10/23/2021 11/22/2022 1 1 [facility] for referral (narrative)* Diagnostic Procedure Only (Routine) - Closed Specialty Diagnoses / Procedures Referred By Contac t Referred To Contact [facility] Diagnoses Category 3 mammography result with short follow-up interval suggested for probably benign finding Procedures US BREAST LTD LT US BREAST UNILAT INCL AXILLA LIMITED Sandi Crow APRN.[employer]ING MACHINE OPERATOR [address] [place] [address] [facility] [address] [place] [address] Referral ID Status Reason Start Date Expiration Date V isits Requested Visits Authorized [id number] Closed Auto-Generate d Referral 06/16/2021 06/15/2022 2 2 [facility] for referral (narrative)* Diagnostic Procedure Only (Routine) - Pending Review Specialty Diagnoses / Procedures Referred By Nick t Referred To Contact [facility] Diagnoses Abnormal mammogram Procedures US BREAST LTD LT US BREAST UNI REAL TIME WITH IMAGE LIMITED Sandi Crow APRN.WO[employer]ING MACHINE OPERATOR [address] [place] [address] [facility] [address] [place] [address] Referral ID Status Reason Start Date Expiration Date Visits Requested Visits Authorized [id number] Pending Review Auto-Generat ed Referral 10/25/2021 11/24/2022 1 1 [facility] for referral (narrative)* Diagnostic Procedure Only (Routine) - Pending Review Specialty Diagnoses / Procedures [facility] To [facility] Diagnoses Fibroadenoma, left Procedures US BREAST LTD LT US BREAST UNI REAL TIME WITH IMAGE LIMITED Michelle Ren MD [address] [place] [address] [facility] [address] [place] [address] Referral ID Status Reason Start Date Expiration Date Visits Requested Visits Authorized [id number] Pending Review Auto-Generat ed Referral 04/16/2022 11/22/2022 1 1 * Diagnostic Procedure Only (Routine) - Pending Review Specialty Diagnoses / Procedures Referred By Contac t Referred To Contact [facility] Diagnoses Fibroadenoma, left Procedures RUFUS DIAGNOSTIC BILAT DIAGNOSTIC MAMMOGRAPHY COMPUTER-AIDED DETCJ BI Michelle Ren MD [address] [place] [address] [facility] [address] [place] [address] Referral ID Status Reason Start Date Expiration Date Visits Requested Visits Authorized [id number] Pending Review Auto-Generat ed Referral 04/16/2022 11/22/2022 1 1 [facility] for referral (narrative)* Diagnostic Procedure Only (Routine) - Pending Review Specialty Diagnoses / Procedures Referred By Contac t Referred To Contact [facility] Diagnoses Encounter for screening mammogram for breast cancer Procedures RUFUS SCREENING SCREENING MAMMOGRAPHY BI 2-VIEW BREAST INC Sandi Vazquez APRN.CNP [address] [place] [place] [address] [facility] [address] [place] [address] Referral ID Status Reason Start Date Expiration Date Visits Requested Visits Authorized [id number] Pending Review Auto-Generat ed Referral 05/30/2023 1 1 [facility] for referral (narrative)* Diagnostic Procedure Only (Routine) - Pending Review Specialty Diagnoses / Procedures Referred By Nick navarrete Referred To Contact [facility] Diagnoses Abnormal ultrasound of breast Procedures RUFUS DIAGNOSTIC LT DIAGNOSTIC MAMMOGRAPHY COMPUTER-AIDED DETCJ UNI Michelle Ren MD [address] [place] [address] [facility] [address] [place] [address] Referral ID Status Reason Start Date Expiration Date Visits Requested Visits Authorized [id number] Pending Review Auto-Generat ed Referral 10/15/2022 06/07/2023 1 1 * Diagnostic Procedure Only (Routine) - Pending Review Specialty Diagnoses / Procedures Referred By Nick navarrete Referred To Contact [facility] Diagnoses Abnormal ultrasound of breast Procedures US BREAST LTD LT US BREAST UNI REAL TIME WITH IMAGE LIMITED Michelle Ren MD [address] [place] [address] [facility] [address] [place] [address] Referral ID Status Reason Start Date Expiration Date Visits Requested Visits Authorized [id number] Pending Review Auto-Generat ed Referral 10/15/2022 06/07/2023 1 1 [facility] for referral (narrative)* Diagnostic Procedure Only (Routine) - Closed Specialty Diagnoses / Procedures Referred By Nick navarrete Referred To Contact [facility] Diagnoses Fibroadenoma, left Procedures US BREAST LTD LT US BREAST UNI REAL TIME WITH IMAGE LIMITED Michelle Ren MD [address] [place] [address] [facility] [address] [place] [address] Referral ID Status Reason Start Date Expiration Date V isits Requested Visits Authorized [id number] Closed Auto-Generate d Referral 04/25/2022 06/15/2022 1 1 [facility] for referral (narrative)* Diagnostic Procedure Only (Routine) - Pending Review Specialty Diagnoses / Procedures Referred By Contac t Referred To Contact [facility] Diagnoses Encounter for screening mammogram for breast cancer Dense breast tissue Procedures RUFUS SCREENING W MARGIE SCREENING DIGITAL BREAST TOMOSYNTHESIS BI SCREENING MAMMOGRAPHY BI 2-VIEW BREAST INC CAD April Acosta APRN.CNM [address] [place] [place] [address] [facility] [address] [place] [address] Referral ID Status Reason Start Date Expiration Date Visits Requested Visits Authorized [id number] Pending Review Auto-Generat ed Referral 3 05/29/2024 1 1 [facility] for referral (narrative)* Diagnostic Procedure Only (Routine) - Closed Specialty Diagnoses / Procedures Referred By Nick t Referred To Contact [facility] Diagnoses Encounter for screening mammogram for breast cancer Procedures RUFUS SCREENING SCREENING MAMMOGRAPHY BI 2-VIEW BREAST INC CAD Sandi Crow APRN.WO[employer] BORING MACHINE OPERATOR [address] [place] [address] [facility] [address] [place] [address] Referral ID Status Reason Start Date Expiration Date V isits Requested Visits Authorized [id number] Closed Auto-Generate d Referral 04/30/2022 05/30/2023 1 1 [facility] for referral (narrative)* Diagnostic Procedure Only (Routine) - Pending Review Specialty Diagnoses / Procedures Referred By Nick t Referred To Contact [facility] Diagnoses Abnormal mammogram Procedures RUFUS DIAGNOSTIC RIGHT DIAGNOSTIC MAMMOGRAPHY COMPUTER-AIDED DETCJ [facility] Sandi Crow APRN.WOOD BORING MACHINE OPERATOR [address] [place] [address] [facility] [address] [place] [address] Referral ID Status Reason Start Date Expiration Date Visits Requested Visits Authorized [id number] Pending Review Auto-Generat ed Referral 3 05/30/2024 1 1 * Diagnostic Procedure Only (Routine) - Pending Review Specialty Diagnoses / Procedures Referred By Nick t Referred To Contact [facility] Diagnoses Abnormal mammogram Procedures US BREAST LTD RIGHT US BREAST UNI REAL TIME WITH IMAGE LIMITED Sandi Crow APRN.[employer]ING MACHINE OPERATOR [address] [place] [address] [facility] [address] [place] [address] Referral ID Status Reason Start Date Expiration Date Visits Requested Visits Authorized [id number] Pending Review Auto-Generat ed Referral 3 05/30/2024 1 1 [facility] for visit Narrative* Diagnostic Procedure Only (Routine) - Closed Specialty Diagnoses / Procedures Referred By Nick navarrete Referred To Contact [facility] Diagnoses Category 3 mammography result with short follow-up interval suggested for probably benign finding Procedures US BREAST LTD LT US BREAST UNILAT INCL AXILLA LIMITED Sandi Crow APRN.WO[employer] B[employer]ING MACHINE OPERATOR [address] [place] [place] [address] [facility] [address] [place] [address] Referral ID Status Reason Start Date Expiration Date V isits Requested Visits Authorized [id number] Closed Auto-Generate d Referral 06/16/2021 06/15/2022 2 2 [facility] for visit Narrative* Diagnostic Procedure Only (Routine) - Closed Specialty Diagnoses / Procedures Referred By Nick t Referred To Contact [facility] Diagnoses Encounter for screening mammogram for breast cancer Procedures RUFUS SCREENING SCREENING MAMMOGRAPHY BI 2-VIEW BREAST INC CAD Sandi Crow APRN.WOOD BORING MACHINE OPERATOR [address] [place] [address] [facility] [address] [place] [address] Referral ID Status Reason Start Date Expiration Date V isits Requested Visits Authorized [id number] Closed Auto-Generate d Referral 04/30/2022 05/30/2023 1 1 [facility] for visit Narrative* Diagnostic Procedure Only (Routine) - Closed Specialty Diagnoses / Procedures Referred By Contabhay t Referred To Contact [facility] Diagnoses Abnormal mammogram Procedures RUFUS DIAGNOSTIC RIGHT DIAGNOSTIC MAMMOGRAPHY COMPUTER-AIDED DETCJ UNI Sandi Crow APRN.WOOD BORING MACHINE OPERATOR [address] [place] [address] [facility] [address] [place] [address] Referral ID Status Reason Start Date Expiration Date V isits Requested Visits Authorized [id number] Closed Auto-Generate d Referral 05/01/2023 05/30/2024 1 1 [facility] for visit Narrative* Diagnostic Procedure Only (Routine) - Authorized Specialty Diagnoses / Procedures Referred By Nick navarrete Referred To Contact [facility] Diagnoses Abnormal mammogram Procedures US BREAST LTD RIGHT US BREAST UNI REAL TIME WITH IMAGE LIMITED Sandi Crow, AIMEE.WOOD BORING MACHINE OPERATOR [address] [place] [address] [facility] [address] [place] [address] Referral ID Status Reason Start Date Expiration Date Visits Requested Visits Authorized [id number] Authorized Auto-Generat ed Referral 05/30/2024 1 1 [facility] Summary Purpose Family History Cancer Status:Active Comments:paterna l relatives w a variety of types of cancer Coronary Artery Disease Status:Active Comments :Negative Family History Of. Hypertension Status:Active Comments:Negativ e Family History Of. Thyroid Cancer Status:Active Comments:Luisna l Aunt. Cancer Status:Active Comments:paterna l relatives w a variety of types of cancer Coronary Artery Disease Status:Active Comments :Negative Family History Of. Hypertension Status:Active Comments:Negativ e Family History Of. Thyroid Cancer Status:Active Comments:Luisna l Aunt. Cancer Status:Active Comments:paterna l relatives w a variety of types of cancer Coronary Artery Disease Status:Active Comments :Negative Family History Of. Hypertension Status:Active Comments:Negativ e Family History Of. Thyroid Cancer Status:Active Comments:Paterna l Aunt. Cancer Status:Active Comments:paterna l relatives w a variety of types of cancer Coronary Artery Disease Status:Active Comments :Negative Family History Of. Hypertension Status:Active Comments:Negativ e Family History Of. Thyroid Cancer Status:Active Comments:Shonna friend Aunt. Advance Directives No Advanced Directives Records FoundNo Advanced Directives Records FoundNo Advanced Directives Records FoundNo Advanced Directives Records Found Additional Source Comments INFORMATION SOURCE (unrecogn ized section and content) DATE CREATED AUTHOR AUTHOR'S ORGANIZ ATION 02/08/2023 [facility] DATE CREATED AUTHOR AUTHOR'S ORGANIZ ATION 06/06/2023 [facility] DATE CREATED AUTHOR AUTHOR'S ORGANIZ ATION 06/07/2023 [facility] Source Comments (unrecognize d section and content) In the event this informatio n is protected by the Federal Confidentiality of Alcohol and Drug Abuse Patient Records regulations: The Federal rules restrict any use of the information to criminally investigate or prosecute any alcohol or drug abuse patient.[facility] the event this information is protected by the Federal Confidentiality of Alcohol and Drug Abuse Patient Records regulations: The Federal rules restrict any use of the information to criminally investigate or prosecute any alcohol or drug abuse patient.[facility] System[facility] the event this information is protected by the Federal Confidentiality of Alcohol and Drug Abuse Patient Records regulations: The Federal rules restrict any use of the information to criminally investigate or prosecute any alcohol or drug abuse patient.[facility] System[facility] the event this information is protected by the Federal Confidentiality of Alcohol and Drug Abuse Patient Records regulations: The Federal rules restrict any use of the information to criminally investigate or prosecute any alcohol or drug abuse patient.[facility] System[facility] the event this information is protected by the Federal Confidentiality of Alcohol and Drug Abuse Patient Records regulations: The Federal rules restrict any use of the information to criminally investigate or prosecute any alcohol or drug abuse patient.[facility] System[facility] the event this information is protected by the Federal Confidentiality of Alcohol and Drug Abuse Patient Records regulations: The Federal rules restrict any use of the information to criminally investigate or prosecute any alcohol or drug abuse patient.[facility] System[facility] the event this information is protected by the Federal Confidentiality of Alcohol and Drug Abuse Patient Records regulations: The Federal rules restrict any use of the information to criminally investigate or prosecute any alcohol or drug abuse patient.[facility] System[facility] the event this information is protected by the Federal Confidentiality of Alcohol and Drug Abuse Patient Records regulations: The Federal rules restrict any use of the information to criminally investigate or prosecute any alcohol or drug abuse patient.[facility] System[facility] the event this information is protected by the Federal Confidentiality of Alcohol and Drug Abuse Patient Records regulations: The Federal rules restrict any use of the information to criminally investigate or prosecute any alcohol or drug abuse patient.[facility] System[facility] the event this information is protected by the Federal Confidentiality of Alcohol and Drug Abuse Patient Records regulations: The Federal rules restrict any use of the information to criminally investigate or prosecute any alcohol or drug abuse patient.[facility] SystemIn the event this information is protected by the Federal Confidentiality of Alcohol and Drug Abuse Patient Records regulations: The Federal rules restrict any use of the information to criminally investigate or prosecute any alcohol or drug abuse patient.[facility] SystemIn the event this information is protected by the Federal Confidentiality of Alcohol and Drug Abuse Patient Records regulations: The Federal rules restrict any use of the information to criminally investigate or prosecute any alcohol or drug abuse patient.[facility] System[facility] the event this information is protected by the Federal Confidentiality of Alcohol and Drug Abuse Patient Records regulations: The Federal rules restrict any use of the information to criminally investigate or prosecute any alcohol or drug abuse patient.[facility] SystemIn the event this information is protected by the Federal Confidentiality of Alcohol and Drug Abuse Patient Records regulations: The Federal rules restrict any use of the information to criminally investigate or prosecute any alcohol or drug abuse patient.[facility] SystemIn the event this information is protected by the Federal Confidentiality of Alcohol and Drug Abuse Patient Records regulations: The Federal rules restrict any use of the information to criminally investigate or prosecute any alcohol or drug abuse patient.[facility] SystemIn the event this information is protected by the Federal Confidentiality of Alcohol and Drug Abuse Patient Records regulations: The Federal rules restrict any use of the information to criminally investigate or prosecute any alcohol or drug abuse patient.[facility] SystemIn the event this information is protected by the Federal Confidentiality of Alcohol and Drug Abuse Patient Records regulations: The Federal rules restrict any use of the information to criminally investigate or prosecute any alcohol or drug abuse patient.[facility] SystemIn the event this information is protected by the Federal Confidentiality of Alcohol and Drug Abuse Patient Records regulations: The Federal rules restrict any use of the information to criminally investigate or prosecute any alcohol or drug abuse patient.[facility] Reason for Visit (unrecogniz ed section and content) Reason Comments Radiology Mammogram Specialty Diagnoses / Procedures Referred By Nick navarrete Referred To Contact [facility] Diagnoses Category 3 mammography result with short follow-up interval suggested for probably benign finding Procedures US BREAST LTD LT US BREAST UNILAT INCL AXILLA LIMITED Sandi Crow, AIMEE.WOOD BORING MACHINE OPERATOR [address] [place] [place] [address] [facility] [address] [place] [address] Referral ID Status Reason Start Date Expiration Date V isits Requested Visits Authorized [id number] Closed Auto-Generate d Referral 06/16/2021 06/15/2022 2 2 Reason Comments Follow Up 6 month breast f/u Specialty Diagnoses / Procedures Referred By Nick navarrete Referred To Contact General Surgery / GENERAL SURGERY Diagnoses please call and schedule your follow up breast imaging and then office visit with Dr. 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 Hand was swollen yesterday. X 2 days Specialty Diagnoses / Procedures Referred By Contac t Referred To Contact Internal Medicine / [facility] Diagnoses right arm, swollen and very painful X 2 days - no known injury Procedures EST SAME DAY Self [facility] [address] [place] [address] Referral ID Status Reason Start Date Expiration Date V isits Requested Visits Authorized [id number] Outside PCP 10/06/2022 01/04/2023 1 1 Specialty Diagnoses / Procedures Referred By Contac t Referred To Contact [facility] Diagnoses Fibroadenoma, left Procedures RUFUS DIAGNOSTIC BILAT DIAGNOSTIC MAMMOGRAPHY COMPUTER-AIDED DETCJ BI Michelle Ren MD [address] [place] [address] [facility] [address] [place] [address] Referral ID Status Reason Start Date Expiration Date V isits Requested Visits Authorized [id number] Closed Auto-Generate d Referral 04/30/2022 06/15/2022 1 1 Reason Comments Radiology US Specialty Diagnoses / Procedures Referred By Contac t Referred To Contact [facility] Diagnoses Fibroadenoma, left Procedures US BREAST LTD LT US BREAST UNI REAL TIME WITH IMAGE LIMITED Michelle Ren MD [address] [place] [address] [facility] [address] [place] [address] Referral ID Status Reason Start Date Expiration Date V isits Requested Visits Authorized [id number] Closed Auto-Generate d Referral 04/25/2022 06/15/2022 1 1 Reason Comments Orders Reason Comments Results Care Teams (unrecognized sec tion and content) Application Security Developer Relationship Specialty Start Date End Date Sharan Medel MD PCP - General 03/13/05 Application Security Developer Relationship Specialty Start Date End Date Sharan Medel MD PCP - General 03/13/05 Application Security Developer Relationship Specialty Start Date End Date Sharan Medel MD PCP - General 03/13/05 Application Security Developer Relationship Specialty Start Date End Date Sharan Medel MD PCP - General 03/13/05 Application Security Developer Relationship Specialty Start Date End Date Sharan Medel MD PCP - General 03/13/05 Application Security Developer Relationship Specialty Start Date End Date Sharan Medel MD PCP - General 03/13/05 Application Security Developer Relationship Specialty Start Date End Date Sharan Medel MD PCP - General 03/13/05 Application Security Developer Relationship Specialty Start Date End Date Sharan Medel MD PCP - General 03/13/05 Application Security Developer Relationship Specialty Start Date End Date Sharan Medel MD PCP - General 03/13/05 Application Security Developer Relationship Specialty Start Date End Date Sharan Medel MD PCP - General 03/13/05 Application Security Developer Relationship Specialty Start Date End Date Sharan Medel MD PCP - General 03/13/05 Application Security Developer Relationship Specialty Start Date End Date Sharan Medel MD PCP - General 03/13/05 Application Security Developer Relationship Specialty Start Date End Date Sharan Medel MD PCP - General 9/28/05 FOR RECORDS PERTAINING TO PATIENTS WHO ARE OR HAVE BEEN ENROLLED IN A CHEMICAL DEPENDENCY/SUBSTANCEABUSE PROGRAM, SOME INFORMATION MAY BE OMITTED. This clinical summary was aggregated from multiple sources. Caution should be exercised in using it in the provision of clinical care. This summary normalizes information from multiple sources, and as a consequence, information in this document may materially change the coding, format and clinical context of patient data. In addition, data may be omitted in some cases. CLINICAL DECISIONS SHOULD BE BASED ON THE PRIMARY CLINICAL RECORDS. [facility]. provides no warranty or guarantee of the accuracy or completeness of information in this document.
== END | disposition home or self-care (01) ==
PROVIDERS: PCP Physician Assistant; Referring Provider Nurse Practitioner; Visit Provider Nurse Practitioner
DX: R31.0 Gross hematuria (principal)
CPT/HCPCS: 74176

== ENCOUNTER → 2023-07-24 | Outpatient (CLI) | payer OTHER, SELFPAY ==
--- NOTE | 2023-07-24 15:00 | FLU_PTH ---
PATHOLOGY RESULTS PATIENT: ASHISH AIKEN LOC: [facility] U#:[id number] AGE/SX: 48/F ROOM: RE07/24/[address]: Dr. Krishna Salguero MD : 1975 BED: DIS: 07/24/2023 SPEC #: [id number] RECD: 07/24/23 15:27 STATUS: BYRON REShaheed #: [id number] ASHLEY: 07/24/23 15:[address]: Krishna Salguero DEPT: CYTOLOGY RECD BY: Trisha Domingo ENTERED: 07/25/23 08:05 SP TYPE: Fluid OTHR DR: PERLA Corona Tissues: Thyroid gland, NOS Thyroid gland, NOS Procedures: Special Stain Group II Surgery Specimen Level IV Cytospin Fluid Cytology Other HEADER OPERATION: Ultrasound guided fine needle aspiration of left thyroid nodule PRE-OP DIAGNOSIS: Left thyroid nodule, hypothyroidism TISSUE SUBMITTED: A - Left thyroid nodule fluid, B - Left thyroid nodule x6 slides DIAGNOSIS CYTOLOGY A. Fine needle aspiration, left thyroid nodule (cytospin and cell block): Negative for malignant cells. See comment. B. 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 See comment. AM:funmilayo 07/28/2023 COMMENT A. The specimen contains macrophages and rare benign follicular cells. Clinical correlation is suggested. The Paradise System for thyroid diagnostic categorization was used in the evaluation of this case. Multi-gene next-generation sequencing panel ([employer]irma) is recommended for this lesion. This recommendation was communicated to the physician's office. CYTOLOGY STUDY Slides are reviewed. CYTOLOGY GROSS A - Received is 2 ml of dark red cloudy fluid labeled with the patient's name and and designated per the requisition as left thyroid nodule. Submitted for cytology preparation including cell block. B - Received are six smears labeled with the patient's name and designated per the requisition as left thyroid nodule. Submitted for staining. / funmilayo 07/25/2023 TC:? CPT: 78152 x2, 94629
== END | disposition home or self-care (01) ==
LOC: LABSPEC 15:34
PROVIDERS: PCP Physician Assistant; Referring Provider Surgery; Visit Provider Surgery
DX: E04.1 Nontoxic single thyroid nodule (principal)
CPT/HCPCS: 88108; 88161; 88305; 88313

== ENCOUNTER → 2023-09-24 | Outpatient (CLI) | payer OTHER, SELFPAY ==
--- NOTE | 2023-09-24 07:53 | US_ITS ---
STUDY: THYROID ULTRASOUND REASON FOR EXAM: Female, 48 years old. History of thyroid nodule. TECHNIQUE: Ultrasound evaluation of the thyroid was performed with real-time and static argueta-scale imaging. COMPARISON: None. FINDINGS: RIGHT LOBE: The right lobe of the thyroid gland measures 4.4 cm x 1.7 cm x 1.6 cm. There is a heterogeneous echotexture. There are no demonstrated solid, cystic or complex lesions. LEFT LOBE: The left lobe of the thyroid gland is enlarged and measures 5.4 cm x 2.4 cm x 1.9 cm. There is a heterogeneous echotexture. There is a 2.7 cm x 2.1 cm x 1 cm complex solid and cystic nodule in the mid lower aspect of the left lobe of the thyroid gland. Intranodular and perinodular vascularity is seen. Biopsy recommended. ISTHMUS: The isthmus is enlarged and measures 5 mm. There is a 1.9 cm x 1.6 cm x 0.8 cm lymph node in zone 2 of the right cervical region. Lymph nodes are also seen in the left cervical region. The largest measures 2.4 cm x 1.4 cm x 0.9 cm. US/Thyroid IMPRESSION: Heterogeneous appearance of both lobes of thyroid gland. Enlarged left lobe of the thyroid with a dominant solid and cystic nodule in the mid lower aspect of the left lobe of the thyroid. Biopsy recommended. Enlarged left cervical lymph nodes. Electronically Signed: Azael Greene MD at 14:58 EDT ,
== END | disposition home or self-care (01) ==
LOC: US 07:35
PROVIDERS: PCP Physician Assistant; Referring Provider Surgery; Visit Provider Surgery
DX: E04.1 Nontoxic single thyroid nodule (principal)
CPT/HCPCS: 76536